=== PATIENT | male | born 1940 | race Caucasian/White ===

== ENCOUNTER → 2019-10-22 14:12 | Outpatient (CLI) | payer OTHER, SELFPAY ==
--- NOTE | ~2019-10-22 | XR_ITS ---
EXAMINATION: CT abdomen pelvis wo con, XR abdomen/kub 1V EXAM DATE: 10/22/2019 14:50 (accession [id number]), 10/22/2019 14:49 (accession [id number]) INDICATION: Kidney stone. Hematuria. TECHNIQUE: Spiral CT of the abdomen and pelvis was performed without contrast. Axial, coronal and sag ittal images were reviewed. The dose-length product (DLP) for this examination was 1097.73 mGy-cm. The exposure was tailored according to patient size (auto mA exposure control), and iterative reconst ruction (ASIR) was used as additional dose reduction technique. KUB obtained. There is no prior study for comparison. FINDINGS: There is mild to moderate bilateral hydroureteronephrosis without obstructing stones. There are large bilateral kidney stones, with left inferior calyceal stone or stones measuring about 2 cm and right inferior calyceal stones measuring about 1 cm and mid calyceal stone measuring 1.5 cm. Ther e is moderate right renal atrophy, mild to moderate left renal atrophy. The prostate is unremarkable. Some diffuse bladder wall thickening, could indicate chronic cystitis. Acute cystitis not excludabl e. Small bilateral inguinal fat-containing hernias. The liver, spleen, adrenal glands and pancreas a re unremarkable. Gallbladder is unremarkable. No biliary obstruction. There is no retroperitoneal or pelvic lymphadenopathy. The appendix is normal. There is mild scattered colonic diverticulosis. There is no adjacent inflamm atory change to suggest diverticulitis. The stomach and small bowel are unremarkable. There is expec kelsey amount of colonic stool. No free intraperitoneal gas. The heart is normal in size. There are no pericardial or pleural effusions. Clusters of left lower lobe tree-in-bud pattern pulmonary nodu les, distribution and appearance is most consistent with small amount of infection or postinfectious residua. Moderate to severe lower lumbar spondylosis. There is chronic bilateral L5 spondylolysis wi th grade 2 anterolisthesis L5 on S1. There are no osteoblastic or osteolytic lesions identified. KUB: Nonobstructive bowel gas pattern. Large bilateral nephrolithiasis identified, indicated. IMPRESSION: 1. Large bilateral nephrolithiasis. 2. Small regions of left lower lobe tree-in-bud nodular opacities likely infectious or postinfectiou s. 3. Bladder wall thickening, probably chronic cystitis. 4. Small bilateral inguinal fat-containing hernias. 5. Scattered colonic diverticulosis. Reviewed, dictated and finalized at location A. IMPRESSION: 1. Large bilateral nephrolithiasis. 2. Small regions of left lower lobe tree-in-bud nodular opacities likely infec tious or postinfectious. 3. Bladder wall thickening, probably chronic cystitis. 4. Small bilateral inguinal fat-containing hernias. 5. Scattered colonic diverticulosis.
== END ==
PROVIDERS: Visit Provider Urology
DX: N20.0 Calculus of kidney (principal); K57.30 Diverticulosis of large intestine without perforation or abscess without bleeding; K40.90 Unilateral inguinal hernia, without obstruction or gangrene, not specified as recurrent; R91.8 Other nonspecific abnormal finding of lung field
CPT/HCPCS: 74018; 74176

== ENCOUNTER 2019-10-28 13:16 | Emergency (ER) | payer OTHER, SELFPAY ==
--- NOTE | 2019-10-28 13:48 | ED.GENADULT ---
HPI - General Adult General Chief complaint: Unspecified Stated complaint: constipation Time Seen by Provider: 10/28/19 13:48 Source: patient Mode of arrival: ambulatory Limitations: no limitations History of Present Illness HPI narrative: A 79 y/o male presents to the ED with c/o constipation for 1 week. Pt states that he was able to dig a little out this morning. Pt has been taking Metamucil and prune juice with no relief. Pt has not taken Miralax or done an enema. Per , pt was in the hospital 3 weeks ago for a UTI and was told that he had ulcers on his esophagus. Pt was advised not to take any pain medication stronger than Tylenol. Pt was then transferred to a fpc for 2 weeks. Pt notes that he self catheterizes. He reports diffuse ABD pain, but denies N/V and a fever. Pt has not taken any pain medication today. Onset (ago): week(s) (1) Relieving factors: none Related Data Allergies Allergy/AdvReac Type Severity Reaction Status Date / Time No Known Allergies Allergy Unverified 12/12/18 08:51 Review of Systems Review of Systems: All systems reviewed & are unremarkable except as noted in HPI and below Constitutional: Constitutional: Denies fever(s) Gastrointestinal: Gastrointestinal: Reports abdominal pain (diffuse), Reports constipation, Denies nausea and Denies vomiting PMFSH Past Medical History Medical History (Updated 10/28/19 @ 15:43 by Tayler Reaves MD) Arthritis BPH (benign prostatic hyperplasia) Diabetes Esophageal ulcer Full dentures GERD (gastroesophageal reflux disease) HLD (hyperlipidemia) Kidney stone Seasonal allergies Shingles UTI (urinary tract infection) Wears glasses Surgical History Surgical History H/O colonoscopy H/O dilation of urethra History of arthroscopy of knee right History of laminectomy Social History Social History (Updated 10/28/19 @ 14:13 by Amanda Goodrich) Smoking status: Former smoker Smoking end date: 08/15/83 Gender identity (if verbalized by the patient): Male Comments PCP: Dr. Law Exam Narrative: Exam Narrative: GENERAL: Well-appearing, well-nourished, and in no acute distress. HEAD: Normocephalic, atraumatic EYES: PERRLA and EOMI, conjunctiva clear without discharge THROAT:Mucous membranes moist, Oropharynx normal without erythema, exudate, peritonsillar swelling or fluctuance NECK: Supple, without lymphadenopathy or mass RESPIRATORY: No respiratory distress, Airway patent, Respirations non-labored, Clear to auscultation without rales, rhonchi or wheeze HEART: Regular rate and rhythm. No murmur heard. Normal peripheral pulses. ABDOMEN: Soft, nontender, Distended, normal active bowel sounds. No masses. No rebound or guarding, No organomegaly. EXTREMITIES: No edema, normal strength with full range of motion. SKIN: Warm, dry, stasis changes to legs NEURO: Alert and oriented x3. CN 2-12 grossly intact. No focal deficits. PSYCH: Normal mood and affect. GI: Other: soft stool in rectal vault Course Reevaluation(s) Reevaluation #1: Patient was given Soap suds enema with large BM. Patient is now sitting wheelchair with clothes on stating he is ready to go home. He feels better. Date: 10/28/19 Time: 15:42 Vital Signs Vital signs: Vital Signs Temperature 97.9 F 10/28/19 14:00 Pulse Rate 69 10/28/19 14:00 Respiratory Rate 16 10/28/19 14:00 Blood Pressure 128/77 10/28/19 14:00 Pulse Oximetry 99 10/28/19 14:00 Temperature 97.9 F 10/28/19 14:00 Pulse Rate 72 10/28/19 15:53 Respiratory Rate 16 10/28/19 15:53 Blood Pressure 142/72 H 10/28/19 15:53 Pulse Oximetry 99 10/28/19 15:53 Medical Decision Making Vital Signs Vital Signs: Vital Signs Temperature 97.9 F 10/28/19 14:00 Pulse Rate 69 10/28/19 14:00 Respiratory Rate 16 10/28/19 14:00 Blood Pressure 128/77 10/28/19 14:00 Pulse Oximetry 99 10/28/19 14:00 Minerva
[2019-10-28 14:00] VITALS: BP 128/77; PULSE 69; RESP 16; TEMP 36.6; O2SAT 99
[2019-10-28 15:53] VITALS: BP 142/72; PULSE 72; RESP 16; O2SAT 99
== END 2019-10-28 15:53 | disposition home or self-care (01) ==
PROVIDERS: Emergency Provider General Practice
DX: K59.00 Constipation, unspecified (principal); M19.90 Unspecified osteoarthritis, unspecified site; N40.0 Benign prostatic hyperplasia without lower urinary tract symptoms; E11.9 Type 2 diabetes mellitus without complications; K21.9 Gastro-esophageal reflux disease without esophagitis; E78.5 Hyperlipidemia, unspecified; Z87.442 Personal history of urinary calculi; Z87.440 Personal history of urinary (tract) infections; Z87.891 Personal history of nicotine dependence
CPT/HCPCS: 99283

== ENCOUNTER 2020-01-16 11:32 | Outpatient (CLI) | payer OTHER, SELFPAY ==
--- NOTE | 2020-01-16 11:34 | ECG_ITS ---
Measurements Intervals [place] Rate: 79 P: 31 [place]: 211 QRS: -38 QRSD: 87 T: 8 QT: 354 QTc: 408 Interpretive Statements SINUS RHYTHM WITH FIRST DEGREE AV BLOCK ATRIAL PREMATURE COMPLEX LEFT AXIS DEVIATION BORDERLINE R WAVE PROGRESSION, ANTERIOR LEADS BASELINE ARTIFACT- I, II, AVR, V5-V6 ABNORMAL ECG Electronically Signed On 01-16-2020 12:40:43 CDT by Albert Gutierrez D.O.
[2020-01-16 12:04] LABS: Basophils Absolute Auto 0.1 K/mm3 (0.0-0.1); Basophils Percent Auto 0.6 % (0.2-1.2); Eosinophils Absolute Auto 0.4 K/mm3 (0-0.3); Eosinophils Percent Auto 3.7 % (0-4.4); Hematocrit 28.4 % (42.0-52.0); Immature Granulocyte Absolute 0.06 K/mm3 (0.00-0.031); Immature Granulocyte Percent A 0.6 % (0-0.5); Lymphocytes Absolute Auto 1.94 K/mm3 (0.9-3.2); Lymphocytes Percent Auto 20.4 % (18.3-44.2); Mean Corpuscular HGB Conc 31.7 g/dl (32-36); Mean Corpuscular Hemoglobin 28.7 pg (26-34); Mean Corpuscular Volume 90.4 fl (80-100); Mean Platelet Volume 9.9 fl (7.4-10.4); Monocytes Absolute Auto 0.7 K/mm3 (0.1-0.6); Monocytes Percent Auto 6.8 % (2.6-8.5); Neutrophils Absolute Auto 6.4 K/mm3 (1.3-6.7); Neutrophils Percent Auto 67.9 % (45.5-73.1); Platelet Count Result 279 k/mm3 (150-375); Red Blood Count 3.14 M/mm3 (4.6-6.20); Red Cell Distribution Width 14.9 % (11.5-14.5); White Blood Count 9.5 K/mm3 (4.5-10.0)
[2020-01-16 12:14] LABS: INR 1.1; Prothrombin Time 13.5 Seconds (11.1-14.7)
[2020-01-16 12:15] LABS: Partial Thromboplastin Time 25.2 SECONDS (22.3-36.8)
[2020-01-16 12:20] LABS: Blood Urea Nitrogen 28 mg/dL (9-20); Calcium 8.8 mg/dL (8.4-10.2); Carbon Dioxide 25 mmol/L (22-30); Chloride 104 mmol/L (98-107); Estimated Glomerular Filt Rate 28; Glucose 161 mg/dL (75-110); Potassium 4.2 mmol/L (3.4-5.0); Sodium 138 mmol/L (137-145)
== END 2020-01-16 11:33 | disposition home or self-care (01) ==
PROVIDERS: PCP Internal Medicine; Visit Provider Urology
DX: Z01.818 Encounter for other preprocedural examination (principal); E11.9 Type 2 diabetes mellitus without complications; R33.9 Retention of urine, unspecified; R94.31 Abnormal electrocardiogram [ECG] [EKG]
CPT/HCPCS: 36415; 80048; 85025; 85610; 85730; 87077; 87086; 87088; 87186; 93005

== ENCOUNTER 2020-01-19 00:48 | Outpatient (CLI) | payer OTHER, SELFPAY ==
[2020-01-19 16:39] LABS: SARS-CoV-2 RNA PCR Negative
== END 2020-01-19 00:49 | disposition home or self-care (01) ==
LOC: ANHCOVIDDT 00:48
PROVIDERS: Visit Provider Urology
DX: Z01.812 Encounter for preprocedural laboratory examination (principal); Z20.828 Contact with and (suspected) exposure to other viral communicable diseases
CPT/HCPCS: 87635; C9803; U0003

== ENCOUNTER 2020-01-22 00:35 | Day surgery (SDC) | payer OTHER, SELFPAY ==
[2020-01-14 14:09] VITALS: BMI 39.3
[2020-01-22] VITALS (11 sets, daily range): BP systolic 112–147; BP diastolic 47–81; PULSE 63–92; RESP 12–20; TEMP 36.2–36.9; O2SAT 94–100
[2020-01-22] MEDS: LACTATED RINGERS 1,000 ML 30 ML IV CONT ×2 (07:00→10:12)
--- NOTE | 2020-01-22 07:06 | WPDANESEPPF ---
Anes - Initial Pre Proc Eval Procedure: Operation Date: 01/22/20 08:15 Proposed Procedures p Trans Urethral Resection Prostate With Bladder Biopsy - Paco Blankenship MD s Circumcision - Paco Blankenship MD Date/Time: 01/22/20 07:06 Surgeon: Paco Blankenship MD Pre Op Diagnosis: phimosis, gross hermaturia, retention Patient Data Age: 79 Gender: M Height: 6 ft Weight: 135 kg Allergies Allergy/AdvReac Type Severity Reaction Status Date / Time No Known Allergies Allergy Verified 01/22/20 06:33 Home Medications Medication Instructions Recorded Confirmed Type cyanocobalamin (vitamin B-12) 1,000 mcg PO DAILY 01/14/20 01/22/20 History furosemide [Lasix] 40 mg PO DAILY 01/14/20 01/22/20 History lovastatin 40 mg PO DAILY 01/14/20 01/22/20 History metformin 500 mg PO BID 01/14/20 01/22/20 History tamsulosin 0.4 mg PO HS 01/14/20 01/22/20 History nitrofurantoin monohyd/m-cryst 100 mg PO BID 01/22/20 01/22/20 History Patient hx anesthesia problems: none Family hx anesthesia problems: none PMFSH Past Medical History Medical History Arthritis BPH (benign prostatic hyperplasia) Diabetes Esophageal ulcer Full dentures GERD (gastroesophageal reflux disease) HLD (hyperlipidemia) Kidney stone Seasonal allergies Shingles UTI (urinary tract infection) Wears glasses Surgical History Surgical History H/O colonoscopy H/O dilation of urethra History of arthroscopy of knee right History of laminectomy Social History Social History Smoking status: Former smoker Smoking end date: 08/15/83 Gender identity (if verbalized by the patient): Male Anes - Eval Final PreProcedure Day of Procedure 01/22/20 07:06 Patient weight: morbidly obese Heart: regular rate and rhythm Lungs: clear to auscultation Airway: Mallampati scale class II Neurological: alert and oriented Last oral intake: >/= 8 hours ASA classification: III Emergent: no Anesthetic plan: proceed Anesthesia type and monitoring: general LMA and standard monitoring Informed Consent: The patient's anesthetic plan and its attendant risks and benefits were discussed with the patient/family/POA. Questions were solicited and answers provided to the satisfaction of the patient/family/POA.
--- NOTE | 2020-01-22 07:23 | WPDHPUPDATE1 ---
History and Physical Update Update Date/Time: 01/22/20 07:23 History and Physical has been reviewed, including an updated exam of the patient. There are NO changes in the patient's condition. Risks, benefits, and alternatives have been discussed and questions answered. Patient agrees to proceed with procedure.
[2020-01-22] MEDS: ceFAZolin 3 GM/D5W 100 ML 100 ML IVPB (08:20)
[2020-01-22] MEDS: LIDOCAINE HCL 2% GEL UROJET 10 ML PKG MUCOUS MEM (08:53)
[2020-01-22] MEDS: NEOMYCIN/POLYMYXIN/BACITRACIN OINTMENT 15 GM TUBE 1 APPLIC TOPICAL (08:54)
--- NOTE | 2020-01-22 10:06 | P.OP_ITS ---
Procedure Note - Detailed Date of procedure: 01/22/20 Pre-op diagnosis: phimosis, gross hermaturia, retention Post-op diagnosis: same Procedure performed: Transurethral resection of prostate, circumcision, excision of penile lesion x 2 (3mm proximal and 5 mm area distally. Description of procedure: The patient is brought to the operative suite areas prepped and draped in a routine sterile fashion while in a supine position. The lines of circumcision are outlined using a sterile marking pen. 2 circumferential circumcising incisions were made and carried down to Colle's fascia. The penile foreskin is circumferentially excised. Hemostasis is obtained with electric cautery. The edges of the penile skin reapproximated using a combination of running and interrupted 4-0 chromic. A penile block is administered at the base of the penis with 0.25% bupivacaine. The patient was taken to the recovery room in good condition. EBL was approximately 10cc. He also had 2 lesions on the shaft of the penis. The proximal lesion measured a pproximately 3 mm and was somewhat raised. This was excised and a suture was placed in the skin. The 2nd lesion was more distally and this was more of an induration of hardness. This area measured approximately 5 mm. We also excised this then used interrupted sutures with chromic. He was then placed in the dorsal lithotomy position and prepped and draped in usual sterile fashion. Twenty[place]four [place] resectoscope sheath was inserted into the bladder. The bladder is inspected he has a lot of typical catheter irritation but no discrete papillary tumors noted at this time. He does have some mild residual prostatic tissue. We went ahead and resected this tissue from the bladder neck to the verumontanum. Electrocautery was used for hemostasis. Chips were sent for analysis. 2% viscous lidocaine was then inserted. [address] [place] [address] was placed with 20 cc in the balloon. This was connected to continuous bladder irrigation and he was taken recovery in stable condition. He will be watched overnight with CBI. Anesthesia: GLMA Surgeon: Paco Blankenship MD Estimated blood loss (mL): 25 Drains: Yes Packing: No Pathology: yes Complications: No immediate complications Condition: stable Disposition: PACU
[2020-01-22 10:35] LABS: Glucose Point of Care 177 (65-105)
--- NOTE | 2020-01-22 11:00 | PC.NURSE ---
This patient, Jovanny Ryder, was admitted to 3 [facility] Surg Room 312-01. Patient/family oriented to hospital policies and general routines including ID bracelet, bed and alarms, visiting hours, pain management, procedures, bathroom and other care routines, personal items, smoking policy, room service/diet, and visiting hours. Valuables list has been completed. Information on how to activate the Rapid Response Team has been discussed. Patient/Family are encouraged to report perceived risks to care and to ask questions if they do not understand what they are told or what they should do.
[2020-01-22] MEDS: metFORMIN HCL 500 MG TABLET PO (17:16)
[2020-01-22] MEDS: NITROFURANTOIN MONOHYD MACROCR 100 MG CAP PO (17:16)
[2020-01-22] MEDS: DOCUSATE SODIUM 100 MG CAPSULE PO (17:16)
[2020-01-22] MEDS: TAMSULOSIN HCL 0.4 MG CAPSULE PO (20:06)
[2020-01-22] MEDS: MORPHINE SULFATE 2 MG/ML INJ IV PUSH (20:10)
[2020-01-23 02:00] VITALS: BP 144/59; PULSE 72; RESP 20; TEMP 37.1; O2SAT 98
[2020-01-23] MEDS: MORPHINE SULFATE 2 MG/ML INJ IV PUSH (03:40)
[2020-01-23 06:00] VITALS: BP 114/58; PULSE 72; RESP 20; TEMP 36.6; O2SAT 99
[2020-01-23 06:42] LABS: Hematocrit 27.8 % (42.0-52.0); Hemoglobin 8.5 g/dL (14.0-18.0)
[2020-01-23 06:48] LABS: Blood Urea Nitrogen 20 mg/dL (9-20); Calcium 8.8 mg/dL (8.4-10.2); Carbon Dioxide 29 mmol/L (22-30); Chloride 105 mmol/L (98-107); Estimated CRCL calculation 37 ml/min; Estimated Glomerular Filt Rate 29; Glucose 166 mg/dL (75-110); Sodium 138 mmol/L (137-145)
[2020-01-23 08:00] VITALS: BP 113/58; PULSE 73
[2020-01-23] MEDS: DOCUSATE SODIUM 100 MG CAPSULE PO (08:00)
[2020-01-23] MEDS: FUROSEMIDE 40 MG TABLET PO (08:01)
[2020-01-23] MEDS: metFORMIN HCL 500 MG TABLET PO (08:01)
[2020-01-23] MEDS: NITROFURANTOIN MONOHYD MACROCR 100 MG CAP PO (08:01)
[2020-01-23] MEDS: LOVASTATIN 20 MG TABLET 40 MG PO (08:01)
--- NOTE | 2020-01-23 08:30 | WPDUROPN2 ---
Progress Note: A&P Assessment and Plan (1) BPH (benign prostatic hyperplasia): Code(s): N40.0 - Benign prostatic hyperplasia without lower urinary tract symptoms Status: Acute Assessment and Plan: Urine clear off CBI. Ok to discharge home with home health with benito catheter. Will remove benito on Tuesday in the office. (2) Penile lesion: Code(s): N48.9 - Disorder of penis, unspecified Status: Acute Assessment and Plan: Awaiting pathology results. Subjective Subjective Date/Time Seen: 01/23/20 08:30 POD #1 TURP, Circumcision, Excision of Penile Lesion Review of Systems Respiratory: Respiratory: Reports no additional respiratory complaints Gastrointestinal: Gastrointestinal: Denies abdominal pain, Denies nausea and Denies vomiting Genitourinary: Genitourinary: Denies genital pain Exam Resp: Effort & Inspection: normal respiratory effort Cardio: Rate: regular rate GI: GI Palp: No abdominal tenderness Urinary Catheter: Urinary Catheter: patent and draining and urine clear Objective Data Vital Signs Vital Signs: Vital Signs - 24 hr 01/22/20 10:12 01/22/20 10:25 01/22/20 10:40 Temperature 97.3 F L Pulse Rate 92 76 72 Respiratory Rate 19 16 14 Blood Pressure 139/67 121/65 112/55 L Pulse Oximetry 99 100 94 01/22/20 10:50 01/22/20 11:00 01/22/20 11:15 Temperature Pulse Rate 69 69 65 Respiratory Rate 12 18 18 Blood Pressure 117/47 L 114/69 127/81 Pulse Oximetry 100 99 97 01/22/20 11:45 01/22/20 12:45 01/22/20 16:15 Temperature 98.1 F 98.2 F Pulse Rate 63 70 68 Respiratory Rate 18 16 18 Blood Pressure 125/71 141/51 H 135/78 Pulse Oximetry 98 95 97 01/22/20 22:00 01/23/20 02:00 01/23/20 06:00 Temperature 98.5 F 98.7 F 97.9 F Pulse Rate 79 72 72 Respiratory Rate 20 20 20 Blood Pressure 118/52 L 144/59 H 114/58 L Pulse Oximetry 95 98 99 01/23/20 08:00 Temperature Pulse Rate 73 Respiratory Rate Blood Pressure 113/58 L Pulse Oximetry Intake/Output Intake/Output: Intake & Output 06/0701/21/20 01/22/20 01/23/20 23:59 23:59 23:59 23:59 Intake Total 890 Output Total 3250 900 Balance -2360 -900 Meds/Results Medications: Active Medications Generic Name Dose Route Start Last Admin Trade Name Freq PRN Reason Stop Dose Admin Hydrocodone Bitart/Acetaminophen 1 tab 01/22/20 10:53 01/23/20 02:33 [place] 5-325 Mg PO 1 tab Q4H PRN Administration Pain Rated 1-6 Docusate Sodium 100 mg 01/22/20 17:00 01/23/20 08:00 Colace Capsule PO 100 mg BID ROHAN Administration Furosemide 40 mg 01/23/20 09:00 01/23/20 08:01 Lasix Tablet PO 40 mg DAILY ROHAN Administration Hyoscyamine 0.125 mg 01/22/20 10:53 Levsin Tablet SUBLINGUAL Q6H PRN Bladder Spasm Lovastatin 40 mg 01/23/20 09:00 01/23/20 08:01 Lovastatin PO 40 mg DAILY ROHAN Administration Metformin HCl 500 mg 01/22/20 17:00 01/23/20 08:01 Glucophage PO 500 mg BIDWM ROHAN Administration Morphine Sulfate 2 mg 01/22/20 10:53 01/23/20 03:40 Morphine Sulfate Inj IV PUSH 2 mg Q2H PRN Administration Pain Rated 7-10 Naloxone HCl 0.1 mg 01/22/20 10:53 Narcan IV PUSH Q2M PRN Opiate Reversal Nitrofurantoin Macrocrystals 100 mg 01/22/20 17:00 01/23/20 08:01 Macrobid PO 100 mg BID ROHAN Administration Ondansetron HCl 4 mg 01/22/20 10:53 Zofran Inj IV PUSH Q12H PRN Nausea And Vomiting Tamsulosin HCl 0.4 mg 01/22/20 21:00 01/22/20 20:06 Flomax PO 0.4 mg HS ROHAN Administration Labs Labs: Laboratory Results - last 24 hr 01/22/20 01/23/20 01/23/20 10:33 06:08 06:08 Hgb 8.5 L Hct 27.8 L Sodium 138 Potassium 4.0 Chloride 105 Carbon Dioxide 29 BUN 20 Creatinine 2.20 H Estim Creat Clear Calc 37 Estimated GFR 29 L Glucose 166 H POC Capillary Glucose 177 H Calcium 8.8
--- NOTE | 2020-01-23 09:18 | WPDANESPN ---
Anes - Prog Note Post-Op Date/Time: 01/23/20 09:18 Cardiovascular status: normal Respiratory status: normal Airway patency: baseline Mental status: baseline Post-Op hydration status: normal Vital Signs: Last Vital Signs Temp 36.6 C 01/23/20 06:00 Pulse 73 01/23/20 08:00 Resp 20 01/23/20 06:00 BP 113/58 L 01/23/20 08:00 Pulse Ox 99 01/23/20 06:00 I/O: Intake & Output 01/22/20 01/23/20 01/23/20 23:59 07:59 15:59 Intake Total 570 Output Total 950 900 Balance -380 -900 Laboratory Tests 01/23/20 06:08 01/23/20 06:08 01/22/20 01/23/20 01/23/20 10:33 06:08 06:08 Hgb 8.5 L Hct 27.8 L Sodium 138 Potassium 4.0 Chloride 105 Carbon Dioxide 29 BUN 20 Creatinine 2.20 H Estim Creat Clear Calc 37 Estimated GFR 29 L Glucose 166 H POC Capillary Glucose 177 H Calcium 8.8 Patient Feedback: Patient satisfied with anesthetic care.
[2020-01-23 10:00] VITALS: BP 120/61; PULSE 71; RESP 18; TEMP 36.7; O2SAT 100
--- NOTE | 2020-01-23 13:36 | PC.NURSE ---
This nurse got patient up out of bed this morning to sit in a chair. Patient was a 2 max assist. I notified Adri Wagner that I did not think the patient was safe to go home. She put orders in for physical therapy. Physical therapy did their evaluation and said that he was not safe to go home and they recommend a SNF. Care coordination went into patients room and discussed this with the patient and he refused. He agreed to home health. I spoke with the patient about the importance of his safety and he still refused to go to a SNF. I notified Adri WAGNER about the situation and she stated to go ahead and discharge him. When I took the patient down to his 's car, I again explained that the hospital and its staff did not think that he was safe to go home. insisted on taking him home. Patient was placed in the car by 3 staff.
--- NOTE | 2020-01-23 15:44 | DS_ITS ---
DATE OF DISCHARGE: 01/23/2020 PREOPERATIVE DIAGNOSES: Phimosis, gross hematuria and retention POSTOPERATIVE DIAGNOSES: Phimosis, gross hematuria and retention. The patient underwent transurethral resection of the prostate, circumcision, excision of penile lesion x2. 3 mm proximal and 5 mm area distally on January 22, [address] Paco Blankenship. The patient tolerated procedure well, was then transferred to recovery in stable condition and to the floor for further observation overnight. The patient has tolerated catheter well. CBI was turned off this morning. The urine remains clear off CBI. The patient has difficulty transferring from bed to chair and has had multiple falls at home. Therefore, physical therapy was consulted and evaluated patient for SNF transfer. The patient did fail physical therapy evaluation and was recommended to go to SNF upon discharge. However, patient is refusing, but did agree to go home with home health care. The patient will be discharged home today with home health care. DIET: As tolerated. ACTIVITY: As tolerated. The patient will follow up Tuesday for catheter removal in the office. He will resume all home medications previously given including hydrocodone-acetaminophen for pain and docusate sodium for constipation. D I MT: Yasmine
== END 2020-01-23 13:30 | disposition home or self-care (01) ==
LOC: ANHSURGERY 06:16 → ANH3MEDSUR 10:54
PROVIDERS: PCP Internal Medicine; Visit Provider Urology
PROC: 0VT08ZZ Resection of Prostate, Via Natural or Artificial Opening Endoscopic (ICD-10-PCS; CPT 52601; principal; 2020-01-22 08:15)
PROC: (CPT 54161; 2020-01-22 08:15)
DX: N40.1 Benign prostatic hyperplasia with lower urinary tract symptoms (principal); R33.8 Other retention of urine; N39.498 Other specified urinary incontinence; R35.0 Frequency of micturition; R35.1 Nocturia; R39.15 Urgency of urination; N47.1 Phimosis; D29.0 Benign neoplasm of penis; N48.5 Ulcer of penis; N41.1 Chronic prostatitis; Z87.440 Personal history of urinary (tract) infections; E11.9 Type 2 diabetes mellitus without complications; Z79.84 Long term (current) use of oral hypoglycemic drugs; E78.5 Hyperlipidemia, unspecified; K21.9 Gastro-esophageal reflux disease without esophagitis; Z87.891 Personal history of nicotine dependence
CPT/HCPCS: 52601; 54161; 11420 ×2; 36415; 80048; 85014; 85018; 88304; 88305; 97161; A9270; J0690; J2270; J2405; J2704; J3010; J7120

== ENCOUNTER 2020-08-12 09:22 | Outpatient (CLI) | payer OTHER, SELFPAY ==
[2020-08-12 10:11] LABS: Anion Gap 10 mmol/L (8-16); Blood Urea Nitrogen 57 mg/dL (9-20); Calcium 9.3 mg/dL (8.4-10.2); Carbon Dioxide 23 mmol/L (22-30); Chloride 106 mmol/L (98-107); Estimated Glomerular Filt Rate 12; Glucose 143 mg/dL (75-110); Potassium 4.7 mmol/L (3.4-5.0); Sodium 139 mmol/L (137-145)
== END 2020-08-12 09:23 | disposition home or self-care (01) ==
LOC: ANHSURGERY 09:24
PROVIDERS: Anesthesiology; PCP Internal Medicine; Visit Provider Urology
DX: Z01.818 Encounter for other preprocedural examination (principal); R60.9 Edema, unspecified; R31.0 Gross hematuria
CPT/HCPCS: 36415; 80048; 87086; 87088

== ENCOUNTER 2020-08-16 02:04 | Outpatient (CLI) | payer OTHER, SELFPAY ==
[2020-08-16 20:09] LABS: SARS-CoV-2 RNA PCR Negative
== END 2020-08-16 02:05 | disposition home or self-care (01) ==
LOC: ANHCOVIDDT 02:04
PROVIDERS: PCP Internal Medicine; Visit Provider Urology
DX: Z01.812 Encounter for preprocedural laboratory examination (principal); Z20.822 Contact with and (suspected) exposure to COVID-19
CPT/HCPCS: C9803; U0003

== ENCOUNTER 2020-08-18 15:41 | Outpatient (CLI) | payer OTHER, SELFPAY ==
--- NOTE | ~2020-08-18 | XR_ITS ---
EXAMINATION: XR abdomen/kub 1V EXAM DATE: 08/18/2020 16:13 INDICATION: Kidney stones. TECHNIQUE: Frontal projection of the upper abdomen, frontal projection lower abdomen/pelvis for inter pretation. Comparison is made to prior examination from 10/22/2019. FINDINGS: Large bilateral kidney stones identified, indicated. These were seen on prior x-ray. Nonob structive bowel gas pattern. Advanced lower lumbar spondylosis. There is no organomegaly. IMPRESSION: Large bilateral nephrolithiasis. Reviewed, dictated and finalized at location A. GN [employer]SEM[employer]ER
--- NOTE | ~2020-08-18 | CT_ITS ---
EXAMINATION: CT abdomen pelvis wo con EXAM DATE: 08/18/2020 16:05 INDICATION: Kidney stone. TECHNIQUE: Spiral CT of the abdomen and pelvis was performed without contrast. Axial, coronal and sag ittal images were reviewed. The dose-length product (DLP) for this examination was 1190.08 mGy-cm. The exposure was tailored according to patient size (auto mA exposure control), and iterative reconst ruction (ASIR) was used as additional dose reduction technique. Comparison is made to prior examinati on from 10/22/2019. FINDINGS: There is moderate to severe right, moderate left-sided renal atrophy. Large kidney stones b ilaterally. There is moderate right, mild to moderate left-sided hydroureteronephrosis, to the UVJs b ilaterally, without obstructing stones identified. There is diffusely thickened bladder wall with adj acent fat stranding, indistinct margins, consistent with acute and/or chronic cystitis. Correlate wit h urinalysis. The prostate is unremarkable. The liver, spleen, adrenal glands and pancreas are unremarkable. Gallbladder is unremarkable. No bi liary obstruction. There is no retroperitoneal or pelvic lymphadenopathy. There is mild to moderat e scattered arteriosclerotic disease. Small bilateral inguinal fat-containing hernias. The appendix is normal. There is small sliding gastroesophageal hiatal hernia. There is expected am ount of colonic stool. No free intraperitoneal gas. The heart is normal in size. There are no pe ricardial or pleural effusions. Stable appearance to the left lower lobe posterior reticular nodular opacities, appearance most consi stent with chronic infectious process or sequela from prior infection. There are no osteoblastic or osteolytic lesions identified. There is chronic L5 bilateral spondylolysis with grade 1 anterolisthe sis L5 on S1. Advanced lower lumbar disc disease. IMPRESSION: 1. Large bilateral nephrolithiasis. Moderate right, mild to moderate left hydroureteronephrosis to t he UVJs without obstructing stones. 2. Diffuse bladder wall thickening, adjacent fat stranding. Acute and/or chronic cystitis. 3. Chronic left lower lobe tree-in-bud infectious or postinfectious process. 4. Small inguinal hernias. Reviewed, dictated and finalized at location A. TEACHER IMPRESSION: 1. Large bilateral nephrolithiasis. Moderate right, mild to moderate left hydr oureteronephrosis to the UVJs without obstructing stones. 2. Diffuse bladder wall thickening, adjacent fat stranding. Acute and/or chron ic cystitis. 3. Chronic left lower lobe tree-in-bud infectious or postinfectious process. 4. Small inguinal hernias.
== END 2020-08-18 15:42 | disposition home or self-care (01) ==
LOC: ANHIMG 15:42
PROVIDERS: PCP Internal Medicine; Visit Provider Urology
DX: N20.0 Calculus of kidney (principal); N13.30 Unspecified hydronephrosis; R93.41 Abnormal radiologic findings on diagnostic imaging of renal pelvis, ureter, or bladder; R91.8 Other nonspecific abnormal finding of lung field; K40.20 Bilateral inguinal hernia, without obstruction or gangrene, not specified as recurrent
CPT/HCPCS: 74018; 74176

== ENCOUNTER 2020-08-19 10:55 | Inpatient (IN) | payer OTHER, SELFPAY ==
[2020-08-06 15:15] VITALS: BMI 37.6
--- NOTE | 2020-08-18 10:29 | WPDANESEPPF ---
Anes - Initial Pre Proc Eval Procedure: Operation Date: 08/19/20 10:00 Proposed Procedures p Cystoscopy, Possible Clot Evacuation - Paco Blankenship MD Date/Time: 08/18/20 10:29 Surgeon: Paco Blankenship MD Pre Op Diagnosis: Gross Hematuria Patient Data Age: 79 Gender: M Height: 1.85 m Weight: 129.35 kg Allergies Allergy/AdvReac Type Severity Reaction Status Date / Time No Known Allergies Allergy Verified 08/19/20 08:02 Home Medications Medication Instructions Recorded Confirmed Type cyanocobalamin (vitamin B-12) 1,000 mcg PO DAILY 01/14/20 08/19/20 History furosemide [Lasix] 40 mg PO PRN PRN 01/14/20 08/19/20 History lovastatin 40 mg PO DAILY 01/14/20 08/19/20 History tamsulosin 0.4 mg PO HS 01/14/20 08/19/20 History docusate sodium 100 mg PO BID #10 cap 01/23/20 08/19/20 Rx tramadol 50 mg PO BID 08/06/20 08/19/20 History Patient hx anesthesia problems: none Family hx anesthesia problems: none PMFSH Past Medical History Medical History (Updated 01/23/20 @ 08:32 by Adri Chirinos APRN) Arthritis BPH (benign prostatic hyperplasia) Diabetes Esophageal ulcer Full dentures GERD (gastroesophageal reflux disease) HLD (hyperlipidemia) Kidney stone Seasonal allergies Shingles UTI (urinary tract infection) Wears glasses Surgical History Surgical History H/O colonoscopy H/O dilation of urethra History of arthroscopy of knee right History of laminectomy Social History Social History Smoking packs per day: 4 Smoking cigarettes per day: 80.0 Years smoked: 32 Smoking pack-years: 128.00 Smoking status: Former smoker Tobacco type: cigarettes Smoking end date: 08/15/83 Alcohol intake: current Drinks per week: 2 Substance use: never Living arrangements: with family Gender identity (if verbalized by the patient): Male Spiritual care concerns: No Anes - Eval Final PreProcedure Day of Procedure 08/18/20 10:29 Patient weight: obese Heart: regular rate and rhythm Lungs: clear to auscultation and normal air movement Airway: Mallampati scale class III Neurological: alert and oriented Last oral intake: >/= 8 hours ASA classification: III Emergent: no Anesthetic plan: proceed Anesthesia type and monitoring: general LMA and standard monitoring Informed Consent: The patient's anesthetic plan and its attendant risks and benefits were discussed with the patient/family/POA. Questions were solicited and answers provided to the satisfaction of the patient/family/POA.
[2020-08-19] VITALS (28 sets, daily range): BP systolic 83–119; BP diastolic 49–86; PULSE 52–140; RESP 14–22; TEMP 35.9–36.6; O2SAT 91–100
--- NOTE | ~2020-08-19 | US_ITS ---
EXAMINATION: US retroperitoneal comp DATE: 08/20/2020 09:58 INDICATION: Renal failure. TECHNIQUE: Multiple ultrasound grayscale images of the kidneys were obtained. COMPARISON: CT abdomen and pelvis 08/18/2020 FINDINGS: The right kidney measures 13.0 x 5.2 x 6.3 cm. The left kidney measures 12.6 x 6.4 x 7.3 cm. The kidn eys demonstrate normal parenchymal echogenicity. There is a 1.4 cm cyst in right kidney. There are st ones in the kidneys better seen on the recent CT. There is no hydronephrosis. The bladder is decompre ssed by a Wilson catheter. IMPRESSION: 1. Bilateral kidney stones better seen by CT. No hydronephrosis. Reviewed, dictated and finalized at location A. S BRANCH MANAGER
--- NOTE | ~2020-08-19 | XR_ITS ---
EXAMINATION: XR retrograde pyelo w/stent BI DATE: 08/19/2020 10:43 INDICATION: Bilateral ureteral stent placement TECHNIQUE: Fluoroscopic images from a bilateral stent placement are submitted for review. 71 seconds of fluoroscopy time. 18 fluoroscopic images. FINDINGS: There are bilateral double-J internal ureteral stent projecting in expected position, with proximal C ope loop at the level of the renal pelvis and distal loop in the pelvis within the bladder lumen. IMPRESSION: 1. Bilateral internal ureteral stent placement. Please refer to real-time procedural findings for d etails. Reviewed, dictated and finalized at location A. SE BLENDER IMPRESSION: 1. Bilateral internal ureteral stent placement. Please refer to real-time pro cedural findings for details.
--- NOTE | ~2020-08-19 | CT_ITS ---
EXAMINATION: CT brain [facility] EXAM DATE: 08/20/2020 16:22 INDICATION: Altered mental status. TECHNIQUE: Spiral CT of the head was performed without contrast. Axial, coronal and sagittal images were reviewed. The dose-length product (DLP) for this examination was 756.67 mGy-cm. The exposure w as tailored according to patient size, and iterative reconstruction (ASIR) was used as additional dos e reduction technique. There is no prior study for comparison. FINDINGS: There is no acute intraparenchymal hemorrhage. No evidence of intraparenchymal brain mass lesion. No evidence of acute infarction. Please note that initial head CT has limited sensitivity f or small or acute infarctions. There is mild periventricular and subcortical hypodensity, nonspecific but probably related to small vessel ischemic disease. There is moderate prominence of the sulci a nd ventricles related to cerebral atrophy. There is intracranial carotid arteriosclerosis. There a re no extra-axial collections. There is no mass effect or midline shift. Patient has had bilateral ocular lens surgery. Soft tissue is unremarkable. Mild to moderate mucoperiosteal thickening. IMPRESSION: 1. No acute intracranial findings. 2. Chronic age related findings. Reviewed, dictated and finalized at location A. ONAL LINES SALES EXECUTIVE
--- NOTE | 2020-08-19 08:27 | WPDHPUPDATE1 ---
History and Physical Update Update Date/Time: 08/19/20 08:27 History and Physical has been reviewed, including an updated exam of the patient. There are NO changes in the patient's condition. Risks, benefits, and alternatives have been discussed and questions answered. Patient agrees to proceed with procedure. Patients creatinine has increased with renal ct showing bilateral hydronephrosis without ureteral stones. Will proceed with bilateral retrogrades with possible bilateral ureteral stents in addition to cystoscopy with possible clot evacuation.
[2020-08-19 08:32] LABS: Hematocrit 22.4 % (42.0-52.0)
[2020-08-19] MEDS: LACTATED RINGERS 1,000 ML 30 ML IV CONT (08:34)
[2020-08-19 08:35] LABS: Glucose Point of Care 168 (65-105)
[2020-08-19 08:40] LABS: Hemoglobin 6.8 g/dL (14.0-18.0)
[2020-08-19 08:42] LABS: INR 1.2
[2020-08-19 08:43] LABS: Partial Thromboplastin Time 30.4 SECONDS (22.3-36.8)
[2020-08-19] MEDS: ceFAZolin 3 GM/D5W 100 ML 100 ML IVPB (10:00)
[2020-08-19] MEDS: LIDOCAINE HCL 2% GEL UROJET 10 ML PKG MUCOUS MEM (10:16)
--- NOTE | 2020-08-19 10:41 | P.OP_ITS ---
Procedure Note - Detailed Date of procedure: 08/19/20 Pre-op diagnosis: Gross Hematuria Post-op diagnosis: other (Bilateral chronically dilated hydroureter is was some tortuosity in the mid to distal ureter. No evidence of clots) Procedure performed: Urethral dilation, cystoscopy, bilateral retrograde pyelogram, right ureteroscopy, bilateral ureteral stent placement, complex Wilson catheter placement 18 [place] tip Description of procedure: Patient is taken to the operative suite and correctly identified. Once anesthesia was obtained he was placed in the dorsal lithotomy position and prepped and draped usual sterile fashion. Twenty-two Guyanese scope was attempted to be passed in the urethra. He was extremely tight. We dilated with male sounds initially up to 20 Guyanese. Nineteen Guyanese scope was then passed. He has somewhat of a tight bladder neck. There is evidence of prior TURP the bladder itself was inspected. There are no tumors noted at this time. No clots were visualized. He has very open patulous ureteral orifices bilaterally. A Virgil was inserted into the right ureter contrast was injected. Again it was dilated. Contrast made its way up into the proximal ureter however there was some what appeared to be narrowing in the ureter right over the iliac crest area. We thus passed a guidewire. Mini flexible ureteroscope was inserted. There were no tumors noted. It is just simply some tortuosity. We then placed a 6 Guyanese contour stent with the proximal end coiled in the renal pelvis distal in the bladder. Pyelogram was then performed on the left side. Again this also has chronically dilated system. Given his renal insufficiency we did go ahead and place a 6 [place]yanese contour on the left in addition due to the hydronephrosis. This also coiled in the renal pelvis with the distal in the bladder. The guidewire was then left in the bladder. Eighteen [place] tip catheter was passed over the guidewire into the bladder and inflated with 10 cc sterile water. He is taken recovery stable condition. Patient is anemic with an hemoglobin of 6.8 will be transfused 1 unit in recovery. Will have Medicine evaluate the patient is see if they will accept him for further management of his anemia as well as renal insufficiency [facility] Surgeon: Paco Blankenship MD Drains: Yes Packing: No Pathology: none sent Complications: No immediate complications Condition: stable Disposition: PACU
[2020-08-19 10:59] LABS: Glucose Point of Care 150 (65-105)
[2020-08-19] MEDS: SODIUM CHLORIDE 0.9% IV 250 ML 25 ML IV CONT (11:20)
--- NOTE | 2020-08-19 12:20 | SUR.PHASEI ---
6050 SBAR FAXED FLOOR NOTIFIED
--- NOTE | 2020-08-19 13:05 | ADMGEN ---
This patient, Jovanny Ryder, was admitted to -. Patient/family oriented to hospital policies and general routines including ID bracelet, bed and alarms, visiting hours, pain management, procedures, bathroom and other care routines, personal items, smoking policy, room service/diet, and visiting hours. Information on how to activate the Rapid Response Team has been discussed. Patient/Family are encouraged to report perceived risks to care and to ask questions if they do not understand what they are told or what they should do.
--- NOTE | 2020-08-19 15:01 | ECG_ITS ---
Measurements Intervals [place] Rate: 109 P: [place]: 0 QRS: -43 QRSD: 109 T: 77 QT: 336 QTc: 453 Interpretive Statements ATRIAL FIBRILLATION WITH RAPID VENTRICULAR RESPONSE LEFT AXIS DEVIATION NONSPECIFIC T-WAVE ABNORMALITY- LATERAL LEADS BASELINE ARTIFACT- I, II, III, AVR, AVL, V1, V3 ABNORMAL ECG Electronically Signed On 08-19-2020 16:09:03 MEDICAL STAFF COORDINATOR by Albert Gutierrez D.O.
--- NOTE | 2020-08-19 15:45 | PM.IMHP ---
H&P: HPI History of Present Illness Date/Time: 08/19/20 15:45 Chief Complaint: Bilateral ureter stents Narrative: Jovanny Ryder is a 79 year old male who has a history of kidney stone. The patient he was found to have bilateral chronically dilated hydroureter and it was somewhat tortuous in the bed and distal ureter. There was no evidence of clots. The patient had urethral dilation, cystoscopy, bilateral retrograde pyelogram, right ureteroscopy, bilateral ureteral stent placement, complex Wilson catheter placement 18 [place] tip. Please see the procedure note from Dr. Blankenship today. The patient was found to be anemic with a hemoglobin of 6.8 he had 1 unit packed red blood cells in the recovery room and then had a 2nd 1 when he receives CV to the floor. The patient was noted to have a rapid heart rate with an arrhythmia. It looks like he has some P-waves. Previous EKG shows frequent APCs. The patient has a Wilson catheter and is draining red color urine. Patient appears to be very pale. Surgery Zofran IV fluids and Ancef. Patient is being admitted to inpatient on the date of service of 08/19/2020 Review of Systems Review of Systems: All systems reviewed & are unremarkable except as noted in HPI and below Constitutional: Constitutional: Reports as per HPI and Reports no additional constitutional complaints Eyes: Eyes: Reports as per HPI and Reports no additional eye complaints ENT: Reports system reviewed and no additional complaints, except as documented and Reports Normal hearing present Cardiovascular: Cardiovascular: Reports no additional cardiovascular complaints Respiratory: Respiratory: Reports no additional respiratory complaints and Reports no additional respiratory complaints Gastrointestinal: Gastrointestinal: Reports as per HPI and Reports no additional gastrointestinal complaints Musculoskeletal: Musculoskeletal: Reports no additional musculoskeletal complaints Integumentary/Breasts: Skin/Breast: Reports system reviewed and no additional complaints, except as docu and Reports as per HPI Neurologic: Reports system reviewed and no additional complaints, except as documented, Reports as per HPI and Reports Normal hearing present Psychiatric: Psychiatric: Reports no additional psychiatric complaints and Reports as per HPI Endocrine: Endocrine: Reports no additional endocrine complaints Hematologic/Lymphatic: Hematologic/Lymphatic: Reports no additional hematologic/lymphatic complaints Allergic/Immunologic: Allergic/Immunologic: Reports no additional allergic/immunologic complaints [facility] Past Medical History Medical History (Updated 08/19/20 @ 16:08 by Esthela Jarrett NP) Arthritis BPH (benign prostatic hyperplasia) CRF (chronic renal failure) Diabetes Esophageal ulcer Full dentures GERD (gastroesophageal reflux disease) HLD (hyperlipidemia) Kidney stone Seasonal allergies Shingles UTI (urinary tract infection) Wears glasses Surgical History Surgical History (Updated 08/19/20 @ 16:00 by Esthela Jarrett NP) H/O colonoscopy H/O dilation of urethra History of arthroscopy of knee right History of laminectomy Status post cystoscopy Family History Family History (Updated 08/19/20 @ 15:53 by Esthela Jarrett NP) Unknown Unknown family medical history Social History Social History (Updated 08/19/20 @ 15:53 by Esthela Jarrett NP) Social History: The patient stated that his is the durable power admitted attorneys. The patient stopped smoking in 1983 he said that he smoked up to 4 packs of cigarettes a day. 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 His no biological children but has 3 step children. No alcohol marijuana or illicit drug use. Smoking packs per day: 4 Smoking cigarettes per day: 80.0 Years smoked: 32 Smoking pack-years: 128.00 Smoking status: Former smoker Tobacco type: cigarettes Smoking end date: 08/15/83 Alcohol intake: current
[2020-08-19] MEDS: DOCUSATE SODIUM 100 MG CAPSULE PO (16:06)
[2020-08-19] MEDS: traMADol HCL (*CRX) 50 MG TABLET PO (16:06)
[2020-08-19] MEDS: CYANOCOBALAMIN 1,000 MCG TABLET 1000 MCG PO (16:55)
[2020-08-19] MEDS: FUROSEMIDE 40 MG TABLET PO (16:56)
[2020-08-19 19:01] LABS: Glucose Point of Care 160 (65-105)
[2020-08-19 19:27] LABS: Hematocrit 23.3 % (42.0-52.0); Hemoglobin 7.2 g/dL (14.0-18.0)
[2020-08-19] MEDS: DIGOXIN INJ 250 MCG/ML 2 ML AMP (*BKC) IV PUSH (20:33)
[2020-08-19] MEDS: SODIUM CHLORIDE 0.9% IV 250 ML 30 ML IV CONT (20:33)
[2020-08-19] MEDS: TAMSULOSIN HCL 0.4 MG CAPSULE PO (20:33)
[2020-08-19 20:54] LABS: Glucose Point of Care 145 (65-105)
[2020-08-20] VITALS (17 sets, daily range): BP systolic 122–139; BP diastolic 53–64; PULSE 85–125; RESP 18–26; TEMP 36.2–37.3; O2SAT 96–99; BMI 38.4
--- NOTE | 2020-08-20 | ECHO_ITS ---
Patient Info Name: Jovanny Ryder Age: 79 years : 1940 Gender: Male Ht: 73 in Wt: 289 lbs BSA: 2.65 m2 HR: 90 bpm BP: 129 / 64 mmHg Technical Quality: Fair Exam Date: 08/20/2020 10:12 AM Exam Location: [facility] Pulmonary Exam Room: [facility] [place] Patient Status: Inpatient Admit Date: 08/19/2020 Staff Ordering Physician: Francisco Rogers MD Leaflet Distributor: Silvia Bermeo RDCS Attending Provider: Eliane Hayes PA-C Referring Physician: Ken KAY; Exam Type: CA echo dop color flow w con Study Info Indications - RAPID AFIB Complete two-dimensional, color flow and Doppler transthoracic echocardiogram is performed with contrast to opacify the left ventricle and to improve the deliniation of the left ventricle endocardial borders. Contrast/Agitated Saline Contrast/Ag. Saline: Definity Amount: 1.00 ml Summary 1. Left ventricular chamber dimension is normal. 2. Definity contrast administered improved wall motion interpretation. 3. Left ventricular systolic function is normal, estimated at 60-65%. 4. There is mildly increased left ventricular wall thickness. 5. The left ventricular diastolic function is grade I diastolic dysfunction. 6. E/e' 9 is minimally elevated. 7. Left atrial chamber dimension is mildly enlarged. 8. Right atrial chamber dimension is mildly enlarged. 9. There is trace tricuspid valve regurgitation. 10. No pulmonary hypertension, estimated pulmonary arterial systolic pressure is 31 mmHg. Left Ventricle E/e' 9 is minimally elevated. Definity contrast administered improved wall motion interpretation. Left ventricular chamber dimension is normal. Left ventricular systolic function is normal, estimated at 60-65%. There is mildly increased left ventricular wall thickness. The left ventricular diastolic function is grade I diastolic dysfunction. Right Ventricle Right ventricular chamber dimension is normal. Right ventricular systolic function is normal. Left Atria Left atrial chamber dimension is mildly enlarged. Right Atria Right atrial chamber dimension is mildly enlarged. Aortic Valve The aortic valve is trileaflet. There is no aortic valve stenosis. There is no aortic valve regurgitation. Pulmonic Valve There is no pulmonic regurgitation. Mitral Valve There is no mitral valve stenosis. There is no mitral valve regurgitation. Tricuspid Valve There is trace tricuspid valve regurgitation. No pulmonary hypertension, estimated pulmonary arterial systolic pressure is 31 mmHg. Pericardium/Pleural There is no pericardial effusion. Inferior Vena Cava Normal inferior vena cava with >50% collapse upon inspiration consistent with normal right atrial pressure, 5 mmHg. Aorta The aortic root size at the sinus of Valsalva is normal. Left Ventricular Outflow Tract Name Value Normal LVOT 2D LVOT Diameter 2.07 cm LVOT Doppler LVOT Peak Gradient 4 mmHg LVOT Mean Gradient 3 mmHg LVOT VTI 17.31 cm LVOT VTI/AV VTI Ratio
[2020-08-20 02:05] LABS: Hemoglobin 7.7 g/dL (14.0-18.0)
--- NOTE | 2020-08-20 06:29 | ECG_ITS ---
Measurements Intervals [place] Rate: 123 P: [place]: 0 QRS: -50 QRSD: 103 T: 86 QT: 302 QTc: 433 Interpretive Statements ATRIAL FLUTTER/TACHYCARDIA WITH RAPID VENTRICULAR RESPONSE LEFT ANTERIOR FASCICULAR BLOCK NONSPECIFIC ST & T-WAVE ABNORMALITY- HIGH LATERAL LEADS BASELINE ARTIFACT- I, II, III, AVR, AVL, AVF, V1 ABNORMAL ECG Electronically Signed On 08-20-2020 6:52:08 TRANSFER DRIVER by Albert Gutierrez D.O.
--- NOTE | 2020-08-20 06:53 | PM.EVENT ---
Event Note Event Note Event Note: Transfer Note This is a 79 year old male who is being treated for anemia with blood transfusions and renal stones who went into atrial fibrillation last night and was treated with digoxin IV. This morning the patient again went into tachycardia. EKG demonstrated atrial fibrillation w/ RVR. On my encounter with the patient he denies any chest pain, palpitations, or shortness of breath at this time. We will transfer the patient to IMU for closer monitoring, continue telemetry, Cardizem IV bolus and drip for rate control. TSH w/ reflex T4, Echocardiogram. The patient is not a candidate for anticoagulation given his low blood counts and transfusions he is receiving.
[2020-08-20 07:21] LABS: Glucose Point of Care 169 (65-105)
--- NOTE | 2020-08-20 07:29 | PM.CNNEP ---
Assessment and Plan Assessment and plan (1) ARF (acute renal failure): Code(s): N17.9 - Acute kidney failure, unspecified Status: Acute Assessment and Plan: The patient has seeming chronic kidney disease. His creatinine was normal in 2019. 2.3 in January of 2020. And now the creatinine is up to 4.7. The chronic kidney disease could be from hypertension and diabetes. He has not been evaluated for this however. The patient has acute kidney injury. His worsened creatinine could have something to do with obstruction from his stones. He could have some sort of a glomerulonephritis or interstitial nephritis. Vascular insult would be unlikely in this scenario. Dehydration is a possibility if he was having problems with stones and was not eating. At this point will get a renal panel, urine electrolytes and eosinophils, and a renal ultrasound. (2) Kidney stone: Code(s): N20.0 - Calculus of kidney Status: Acute Assessment and Plan: The patient has had kidney stones. CT abdomen showed bilateral nephrolithiasis with moderate hydronephrosis on both side. This was day before yesterday. KUB showed bilateral nephrolithiasis. So we can follow KUBs going forward. Will wait until outpatient to do 24hour urines for stone analysis says he just had instrumentation done. We can check a PTH and uric acid however. I encouraged him to drink plenty of fluid and avoid salty foods. (3) Irregular heart beat: Code(s): I49.9 - Cardiac arrhythmia, unspecified Status: Acute Assessment and Plan: since I saw him today he was transferred to the IMU (4) Diabetes: Code(s): E11.9 - Type 2 diabetes mellitus without complications Status: Chronic Assessment and Plan: on Accu-Cheks and sliding-scale insulin (5) BPH (benign prostatic hyperplasia): Code(s): N40.0 - Benign prostatic hyperplasia without lower urinary tract symptoms Status: Chronic Assessment and Plan: sees Urology History of Present Illness Reason for Consult Consult date: 08/20/20 Chief Complaint Chief complaint: Gross Hematuria History of Present Illness Narrative: Jovanny is a very pleasant 79-year-old gentleman who has kidney stones and a high creatinine. He says he has had kidney stones for a couple of years. He thinks he passes 1 every month. He sees urology frequently. yesterday he had a procedure done on the stones. He has never had pancreatitis. He does have some constipation. He has not been told about high calcium. He has never had the gout. He has no family history of kidney disease or kidney stones. He had some fast heart rate so was admitted to the hospital. Upon admission it was noted that his creatinine had been high at the end of July so renal consultation was requested. The patient says that he feels better today. He has history of diabetes. He says that sugars have been under pretty good control. He does not have retinopathy. The patient has arthritis which is chronic. The patient has hyperlipidemia, shingles, bladder infections, esophageal ulcer. Review of Systems Constitutional: Constitutional: Reports no additional constitutional complaints Eyes: Eyes: Reports no additional eye complaints ENT: Reports system reviewed and no additional complaints, except as documented Cardiovascular: Cardiovascular: Reports no additional cardiovascular complaints Respiratory: Respiratory: Reports no additional respiratory complaints Gastrointestinal: Gastrointestinal: Reports no additional gastrointestinal complaints Genitourinary: Genitourinary: Reports no additional male genitourinary complaints Musculoskeletal: Musculoskeletal: Reports no additional musculoskeletal complaints Integumentary/Breasts: Skin/Breast: Reports system reviewed and no additional complaints, except as docu Neurologic: Rep
--- NOTE | 2020-08-20 07:29 | PC.NURSE ---
informed alicia myrick of patient transfer
[2020-08-20 07:38] LABS: Basophils Percent Auto 0.3 % (0.2-1.2); Eosinophils Absolute Auto 0.1 K/mm3 (0-0.3); Hematocrit 25.8 % (42.0-52.0); Hemoglobin 8.1 g/dL (14.0-18.0); Immature Granulocyte Absolute 0.09 K/mm3 (0.00-0.031); Immature Granulocyte Percent A 0.8 % (0-0.5); Lymphocytes Absolute Auto 0.78 K/mm3 (0.9-3.2); Lymphocytes Percent Auto 7.2 % (18.3-44.2); Mean Corpuscular HGB Conc 31.4 g/dl (32-36); Mean Corpuscular Hemoglobin 24.8 pg (26-34); Mean Corpuscular Volume 78.9 fl (80-100); Mean Platelet Volume 9.6 fl (7.4-10.4); Monocytes Percent Auto 9.3 % (2.6-8.5); Neutrophils Absolute Auto 8.9 K/mm3 (1.3-6.7); Neutrophils Percent Auto 81.4 % (45.5-73.1); Platelet Count Result 226 k/mm3 (150-375); Red Blood Count 3.27 M/mm3 (4.6-6.20); Red Cell Distribution Width 17.2 % (11.5-14.5); White Blood Count 10.9 K/mm3 (4.5-10.0)
--- NOTE | 2020-08-20 07:38 | PC.NURSE ---
transferred to IMU room 206 after calling report to Deana MONTGOMERY. all belongings verified.
[2020-08-20 07:53] LABS: Alanine Aminotransferase 13 U/L (4-50); Albumin Level 3.5 g/dL (3.5-5.1); Alkaline Phosphatase 122 U/L (38-126); Anion Gap 9 mmol/L (8-16); Aspartate Amino Transferase 19 U/L (17-59); Bilirubin,Total 0.5 mg/dL (0.2-1.3); Blood Urea Nitrogen 52 mg/dL (9-20); Calcium 8.8 mg/dL (8.4-10.2); Carbon Dioxide 21 mmol/L (22-30); Chloride 108 mmol/L (98-107); Estimated CRCL calculation 16 ml/min; Estimated Glomerular Filt Rate 11; Glucose 178 mg/dL (75-110); Magnesium 1.7 mg/dL (1.6-2.3); Potassium 4.2 mmol/L (3.4-5.0); Sodium 138 mmol/L (137-145)
--- NOTE | 2020-08-20 08:00 | PM.CNCAR ---
Assessment and Plan Assessment and plan (1) Anemia: Code(s): D64.9 - Anemia, unspecified Status: Acute Assessment and Plan: S/P 2 units PRBC. (2) HLD (hyperlipidemia): Code(s): E78.5 - Hyperlipidemia, unspecified Status: Chronic Assessment and Plan: Continue Lovastatin. (3) Atrial tachycardia, paroxysmal: Code(s): I47.1 - Supraventricular tachycardia Status: Acute Assessment and Plan: PAT/flutter. This is likely due to worsened anemia and s/p urologic procedure. Will not start Diltiazem bolus or drip given BP is 119 systolic and HR 128 bpm. Will start Metoprolol Tartate 25 mg PO every 6 hours with parameters. No anticoagulation given hematuria and anemia. Check Mag level. Obtain echo. (4) ARF (acute renal failure): Code(s): N17.9 - Acute kidney failure, unspecified Status: Acute Assessment and Plan: Cr trending up. Consider nephrology consult. History of Present Illness History of Present Illness Consult date/time: 08/20/20 08:00 Reason for consult: Rapid HR. 79 yr old man was admitted after having urologic procedure (urethral dilation, cystoscopy, right ureteroscopy, bilateral ureteral stent placement by Dr. Blankenship) for kidney stones. He has a history of dyslipidemia and no other cardiac history. Wilson is in place with blood in it. It was noted on telemetry that his HR increased to 130's bpm and EKG shows atrial flutter/tachycardia. He was then transferred to IMU from [address] [place] [address] for Diltiazem drip which is being started now. He has a history of anemia with Hb 8-9 gm range that went to 6.8 yesterday after procedure, given 2 units of PRBC and now it is 7.7 gms. Denies chest pain, sob, orthopnea, PND, edema. He can walk about 1 block normally. Reason For Visit: Gross Hematuria Review of Systems Review of Systems: All systems reviewed & are unremarkable except as noted in HPI and below Constitutional: Constitutional: Reports as per HPI, Denies chills and Denies fatigue Cardiovascular: Cardiovascular: Reports as per HPI, Denies chest pain, Denies leg edema and Denies lightheadedness Respiratory: Respiratory: Reports as per HPI and Denies dyspnea Gastrointestinal: Gastrointestinal: Reports as per HPI and Denies abdominal pain Genitourinary: Genitourinary: Reports as per HPI and Reports hematuria Musculoskeletal: Musculoskeletal: Reports as per HPI Neurologic: Reports as per HPI, Denies dizziness and Denies syncope [facility] Past Medical History Medical History (Updated 08/20/20 @ 08:09 by Albert Gutierrez DO) Arthritis BPH (benign prostatic hyperplasia) CRF (chronic renal failure) Diabetes Esophageal ulcer Full dentures GERD (gastroesophageal reflux disease) HLD (hyperlipidemia) Kidney stone Seasonal allergies Shingles UTI (urinary tract infection) Wears glasses Surgical History Surgical History (Updated 08/19/20 @ 16:00 by Esthela Jarrett NP) H/O colonoscopy H/O dilation of urethra History of arthroscopy of knee right History of laminectomy Status post cystoscopy Family History Family History (Updated 08/19/20 @ 15:53 by Esthela Jarrett NP) Unknown Unknown family medical history Social History Social History (Updated 08/19/20 @ 15:53 by Esthela Jarrett NP) Social History: 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 The patient stopped smoking in 1983 he said that he smoked up to 4 packs of cigarettes a day. 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 His no biological children but has 3 step children. No alcohol marijuana or illicit drug use. Smoking packs per day: 4 Smoking cigarettes per day: 80.0 Years smoked: 32 Smoking pack-years: 128.00 Smoking status: Former smoker Tobacco type: cigarettes Smoking end date: 08/15/83 Alcohol intake: current Drinks per week: 2 Substance use: never Substance use type: does not use [facility]
[2020-08-20 08:13] LABS: Phosphorus 3.5 mg/dL (2.5-4.5)
[2020-08-20 08:18] LABS: Hemoglobin A1C 6.8 % (<5.7)
[2020-08-20 08:19] LABS: Iron 11 ug/dL (49-181)
[2020-08-20 08:30] LABS: Percent Iron Saturation 3 % (20-50)
[2020-08-20] MEDS: METOPROLOL TARTRATE 25 MG TABLET PO ×3 (08:51→21:41)
[2020-08-20] MEDS: CYANOCOBALAMIN 1,000 MCG TABLET 1000 MCG PO (08:53)
[2020-08-20] MEDS: DOCUSATE SODIUM 100 MG CAPSULE PO ×2 (08:53→17:23)
[2020-08-20] MEDS: LOVASTATIN 20 MG TABLET 40 MG PO (08:53)
[2020-08-20 08:54] LABS: Thyroid Stimulating Hormone Reflex 0.762 uIU/mL (0.465-4.68)
[2020-08-20] MEDS: EUCERIN CREAM 120 GM JAR 1 APPLIC TOPICAL (08:54)
[2020-08-20] MEDS: traMADol HCL (*CRX) 50 MG TABLET PO ×2 (08:59→17:23)
[2020-08-20 09:12] LABS: Folic Acid 8.5 ng/mL (2.76->20)
[2020-08-20] MEDS: PERFLUTREN LIPID MICROSPHERES 1.5 ML VIAL DILUTED TO 10 ML TOTAL VOLUME IV PUSH (10:45)
[2020-08-20 12:34] LABS: Glucose Point of Care 161 (65-105)
[2020-08-20 13:02] LABS: Hematocrit 25.8 % (42.0-52.0); Hemoglobin 8.2 g/dL (14.0-18.0)
[2020-08-20 13:16] LABS: Anion Gap 9 mmol/L (8-16); Blood Urea Nitrogen 49 mg/dL (9-20); Calcium 8.7 mg/dL (8.4-10.2); Carbon Dioxide 19 mmol/L (22-30); Chloride 110 mmol/L (98-107); Estimated CRCL calculation 17 ml/min; Estimated Glomerular Filt Rate 12; Glucose 155 mg/dL (75-110); Sodium 138 mmol/L (137-145)
--- NOTE | 2020-08-20 13:30 | ECG_ITS ---
Measurements Intervals [place] Rate: 86 P: 17 SD: 198 QRS: -34 QRSD: 114 T: 32 QT: 346 QTc: 414 Interpretive Statements SINUS RHYTHM LEFT AXIS DEVIATION INTRAVENTRICULAR CONDUCTION DELAY BASELINE ARTIFACT- I, II, AVR, V1-V2 BORDERLINE ECG Electronically Signed On 08-20-2020 14:22:14 [employer] by Albert Gutierrez D.O.
--- NOTE | 2020-08-20 15:57 | PM.IMPN ---
Progress Note: A&P Assessment and Plan (1) Acute on chronic kidney failure: Code(s): N17.9 - Acute kidney failure, unspecified; N18.9 - Chronic kidney disease, unspecified Status: Acute Assessment and Plan: CKD and baseline creatinine appears to be about 2.3. In late July 2020 creatinine was 4.8 and now creatinine is 5.0 today. Chronic kidney disease is likely explained by hypertension and diabetes mellitus. Injury is less clear, may be secondary to obstructive uropathy from stones or may be pre renal secondary to dehydration as poor appetite was noted. Renal ultrasound unremarkable and no hydronephrosis noted. Appreciate nephrology consultation Monitor renal function closely and avoid nephrotoxic agents. IV fluid hydration will be continued (2) Kidney stone: Code(s): N20.0 - Calculus of kidney Status: Acute Assessment and Plan: Patient presented with gross hematuria. CT a/p performed 08/18 showed large bilateral nephrolithiasis with mild to moderate hydroureteronephrosis. He underwent bilateral ureteral stent placement on 08/19/[address] Blankenship. He tolerated the procedure well. Repeat renal ultrasound today showed no residual hydronephrosis. Appreciate urology consultation He will likely need definitive stone management at a later date. Continue Wilson catheter at this time per Urology (3) Altered mental status: Code(s): R41.82 - Altered mental status, unspecified Status: Acute Assessment and Plan: Patient oriented to self and no use in the hospital but could not recall the name. He is slow to respond to all questions and does not answer all questions appropriately. His notes that this is not typical baseline for him. Etiology for this is not entirely clear and I am not sure how he was behaving prior to having his procedure. This may be secondary to anesthesia, although his surgery was >24 hours ago. Given the appearance of his urine, UTI is not excludable, although he does not really have any other signs or symptoms to suggest underlying infection. Stroke considered although less likely as he has no focal neuro deficits noted on exam. TSH wnl. Check UA with reflex culture. Will consider addition of IV antibiotics if urinalysis abnormal Obtain head CT Monitor symptoms closely (4) Anemia: Code(s): D64.9 - Anemia, unspecified Status: Acute Assessment and Plan: Patient noted to be anemic prior to procedure. A change of presentation was 6.8 and. He underwent transfusion of 2 units pRBC. This may be an acute on chronic picture. I suspect patient has chronic anemia secondary to chronic disease from kidney failure and may have an acute component from hematuria. H&H stable following transfusion. Iron panel shows mixed picture. B12 and folate within limits. Vital signs are stable and he has no signs or symptoms to suggest active bleeding Monitor H&H q6h and transfuse as needed Given significantly decreased iron stores, will administer IV venofer (5) Atrial tachycardia: Code(s): I47.1 - Supraventricular tachycardia Status: Acute Assessment and Plan: Patient noted to have atrial flutter with heart rate up to 130s. This was likely exacerbated by anemia and surgical procedure. Electrolytes are stable. Appreciate cardiology consultation Echo has been ordered and is pending Begin metoprolol titrate 25 mg p.o. q.6 per cardiology recommendations. No anticoagulation will be initiated in light of anemia and hematuria. (6) Diabetes: Code(s): E11.9 - Type 2 diabetes mellitus without complications Status: Chronic Assessment and Plan: A1c is 6.8. It appears the patient is not on any hypoglycemic agents. Blood sugars have been stable. Continue Accu-Cheks ACHS, SSI, hypoglycemic protocol. Subjective Date/time seen: 08/20/20 15:57 Interval history: Date of service:
[2020-08-20 16:28] LABS: Add Urine Microscopic? YES; Appearance Urine Turbid (Clear); Bacteria Urine 1+ /hpf; Bilirubin Urine Negative (Negative); Blood Urine 3+ (Negative); Color Urine Yellow (Yellow); Glucose Urine UA Negative (Negative); Ketones Urine Negative (Negative); Leukocyte Esterase Ur 2+ LEU/UL (Negative); Mucus Urine Rare /lpf; Nitrate Urine Negative (Negative); Protein Urine 2+ mg/dL (Negative); RBC Urine >75 /hpf (0-2); Specific Grav Ur 1.014 (1.001-1.035); Squamous Epithelial Cell Urine Few /hpf (Few); Urobilinogen Urine Negative mg/dL (<2.0); WBC Urine >75 /hpf
[2020-08-20 16:40] LABS: Creatinine Urine 109.1 mg/dL; Sodium Urine Random 53 meq/L
[2020-08-20 16:47] LABS: Total Protein Urine Random 297 mg/dL; Ur Ttl Prot Creatinine Ratio 2.72 mg/mg (0-0.20)
[2020-08-20 16:57] LABS: Hematocrit 25.1 % (42.0-52.0); Hemoglobin 7.8 g/dL (14.0-18.0)
[2020-08-20 17:07] LABS: Creatine Kinase 122 U/L (55-170)
[2020-08-20] MEDS: IRON SUCROSE COMPLEX 200 MG in SODIUM CHLORIDE 0.9% IV 50 ML 120 MG IVPB (17:08)
[2020-08-20] MEDS: SODIUM CHLORIDE 0.9% IV 1,000 ML 100 ML IV CONT (17:08)
[2020-08-20 17:09] LABS: Uric Acid 8.4 mg/dL (3.5-8.5)
[2020-08-20 17:17] LABS: Complement C3 143 mg/dL (88-165)
[2020-08-20 17:21] LABS: Parathyroid Intact 51.9 pg/mL (7.5-53.5)
[2020-08-20 17:21] LABS: Glucose Point of Care 152 (65-105)
[2020-08-20 20:11] LABS: Glucose Point of Care 142 (65-105)
[2020-08-20] MEDS: TAMSULOSIN HCL 0.4 MG CAPSULE PO (21:41)
[2020-08-21] VITALS (17 sets, daily range): BP systolic 119–140; BP diastolic 59–67; PULSE 66–86; RESP 18–22; TEMP 36.2–37.3; O2SAT 96–100
[2020-08-21 00:36] LABS: Hematocrit 24.5 % (42.0-52.0); Hemoglobin 7.6 g/dL (14.0-18.0)
[2020-08-21] MEDS: SODIUM CHLORIDE 0.9% IV 1,000 ML 100 ML IV CONT ×2 (04:22→15:14)
[2020-08-21 05:34] LABS: Hematocrit 24.5 % (42.0-52.0); Hemoglobin 7.3 g/dL (14.0-18.0); Mean Corpuscular HGB Conc 29.8 g/dl (32-36); Mean Corpuscular Hemoglobin 24.2 pg (26-34); Mean Corpuscular Volume 81.1 fl (80-100); Platelet Count Result 214 k/mm3 (150-375); Red Blood Count 3.02 M/mm3 (4.6-6.20); Red Cell Distribution Width 17.7 % (11.5-14.5); White Blood Count 10.4 K/mm3 (4.5-10.0)
[2020-08-21 05:44] LABS: Alanine Aminotransferase 9 U/L (4-50); Albumin Level 3.2 g/dL (3.5-5.1); Alkaline Phosphatase 102 U/L (38-126); Anion Gap 8 mmol/L (8-16); Aspartate Amino Transferase 20 U/L (17-59); Bilirubin,Total 0.4 mg/dL (0.2-1.3); Blood Urea Nitrogen 47 mg/dL (9-20); Calcium 8.5 mg/dL (8.4-10.2); Carbon Dioxide 21 mmol/L (22-30); Chloride 110 mmol/L (98-107); Estimated CRCL calculation 19 ml/min; Estimated Glomerular Filt Rate 14; Glucose 130 mg/dL (75-110); Phosphorus 3.8 mg/dL (2.5-4.5); Potassium 3.8 mmol/L (3.4-5.0); Sodium 139 mmol/L (137-145)
--- NOTE | 2020-08-21 08:49 | PM.PNNEP ---
Progress Note: A&P Assessment and Plan (1) ARF (acute renal failure): Code(s): N17.9 - Acute kidney failure, unspecified Status: Acute Assessment and Plan: The patient has apparent chronic kidney disease. His creatinine was normal in 2019. 2.3 in January of 2020. And now the creatinine is up to 4.7. Renal ultrasound shows no obstruction. Urine electrolytes are non pre renal He does have lots of protein in the urine. However he also has a bladder infection. The chronic kidney disease could be from hypertension and diabetes. However the progression is a bit too fast. He has an infection right now which could be playing a role in his high creatinine or he could have some sort of a glomerulonephritis. We can't really do a biopsy now because of the current infection. So will get serology and immunofixation see what this shows. In the meantime will continue IV fluids and continue antibiotics. (2) Kidney stone: Code(s): N20.0 - Calculus of kidney Status: Acute Assessment and Plan: The patient has had kidney stones. CT abdomen showed bilateral nephrolithiasis with moderate hydronephrosis on both side. This was day before yesterday. KUB showed bilateral nephrolithiasis. So we can follow KUBs going forward. Will wait until outpatient to do 24hour urines for stone analysis says he just had instrumentation done. Uric acid is very high. Will start allopurinol. PTH is okay. I encouraged him to drink plenty of fluid and avoid salty foods. (3) Irregular heart beat: Code(s): I49.9 - Cardiac arrhythmia, unspecified Status: Acute Assessment and Plan: Rate control is good (4) Diabetes: Code(s): E11.9 - Type 2 diabetes mellitus without complications Status: Chronic Assessment and Plan: on Accu-Cheks and sliding-scale insulin (5) BPH (benign prostatic hyperplasia): Code(s): N40.0 - Benign prostatic hyperplasia without lower urinary tract symptoms Status: Chronic Assessment and Plan: sees Urology Subjective Date/time seen: 08/21/20 08:49 Interval history: Patient is alert. Much more so than yesterday. He is not having any chest pain or shortness of breath. Review of Systems Cardiovascular: Cardiovascular: Reports no additional cardiovascular complaints Respiratory: Respiratory: Reports no additional respiratory complaints Gastrointestinal: Gastrointestinal: Reports no additional gastrointestinal complaints Genitourinary: Genitourinary: Reports no additional male genitourinary complaints Exam Narrative: Exam Narrative: WDWN in NAD skin no rash head ncat lungs clear cor reg no rub abd BS+ nontender and soft ext no edema. Objective Data Vital Signs Vital Signs: Vital Signs - 24 hr 08/20/20 08:51 08/20/20 12:00 08/20/20 12:15 Temperature Pulse Rate 122 H 105 H 95 Respiratory Rate Blood Pressure Pulse Oximetry 08/20/20 12:40 08/20/20 14:00 08/20/20 16:00 Temperature 37.2 C Pulse Rate 96 85 90 Respiratory Rate 20 Blood Pressure 122/61 Pulse Oximetry 97 08/20/20 16:02 08/20/20 18:00 08/20/20 20:00 Temperature 36.8 C Pulse Rate 91 87 85 Respiratory Rate 24 H Blood Pressure 139/63 Pulse Oximetry 96 08/20/20 20:41 08/20/20 21:41 08/20/20 22:00 Temperature 36.2 C L Pulse Rate 87 86 86 Respiratory Rate 18 Blood Pressure 137/62 Pulse Oximetry 99 08/21/20 00:00 08/21/20 02:00 08/21/20 04:00 Temperature 36.2 C L 37.1 C Pulse Rate 85 72 73 Respiratory Rate 18 20 Blood Pressure 140/60 129/60 Pulse Oximetry 97 96 08/21/20 06:00 Temperature Pulse Rate 70 Respiratory Rate Blood Pressure Pulse Oximetry Intake/Output Intake/Output: Intake & Output 08/18/20 08/19/20 08/20/20 08/21/20 23:59 23:59 23:59 23:59 Intake Total 2210 135 9136 Output Total 475 3300 Balance 1440 -2820 1000 Meds/Results Medicati
--- NOTE | 2020-08-21 09:29 | WPDUROPN2 ---
Progress Note: A&P Assessment and Plan (1) ARF (acute renal failure): Code(s): N17.9 - Acute kidney failure, unspecified Status: Acute Assessment and Plan: Improving slowly with stent placement, benito placement and antibiotics. (2) BPH (benign prostatic hyperplasia): Code(s): N40.0 - Benign prostatic hyperplasia without lower urinary tract symptoms Status: Chronic Assessment and Plan: Keep benito in until further notice. Manually irrigate q shift and PRN. (3) UTI (urinary tract infection): Code(s): N39.0 - Urinary tract infection, site not specified Status: Acute Assessment and Plan: Continue IV antibiotics, tailor to culture results. Subjective Subjective Date/Time Seen: 08/21/20 09:29 POD #2 TURP, Circumcision, Excision of Penile Lesion Urine is clearing up nicely with the addition of Rocephin. It is yellow, with sediment but no longer bloody and he has less sediment. He seems to be feeling better today as well. Review of Systems Respiratory: Respiratory: Reports no additional respiratory complaints Gastrointestinal: Gastrointestinal: Denies abdominal pain, Denies nausea and Denies vomiting Genitourinary: Genitourinary: Denies hematuria and Denies flank pain Exam Resp: Effort & Inspection: normal respiratory effort Cardio: Rate: regular rate GI: GI Palp: Yes Soft to palpation and No Tenderness to palpation present (GI) : General: Yes no CVA tenderness Urinary Catheter: Urinary Catheter: patent and draining and urine cloudy Extrem: General: edema bilateral Objective Data Vital Signs Vital Signs: Vital Signs - 24 hr 08/20/20 12:00 08/20/20 12:15 08/20/20 12:40 Temperature 98.9 F Pulse Rate 105 H 95 96 Respiratory Rate 20 Blood Pressure 122/61 Pulse Oximetry 97 08/20/20 14:00 08/20/20 16:00 08/20/20 16:02 Temperature 98.3 F Pulse Rate 85 90 91 Respiratory Rate 24 H Blood Pressure 139/63 Pulse Oximetry 96 08/20/20 18:00 08/20/20 20:00 08/20/20 20:41 Temperature 97.1 F L Pulse Rate 87 85 87 Respiratory Rate 18 Blood Pressure 137/62 Pulse Oximetry 99 08/20/20 21:41 08/20/20 22:00 08/21/20 00:00 Temperature 97.2 F L Pulse Rate 86 86 85 Respiratory Rate 18 Blood Pressure 140/60 Pulse Oximetry 97 08/21/20 02:00 08/21/20 04:00 08/21/20 06:00 Temperature 98.7 F Pulse Rate 72 73 70 Respiratory Rate 20 Blood Pressure 129/60 Pulse Oximetry 96 Intake/Output Intake/Output: Intake & Output 08/18/20 08/19/20 08/20/20 08/21/20 23:59 23:59 23:59 23:59 Intake Total 6620 972 3493 Output Total 475 3300 Balance 1440 -2820 1000 Meds/Results Medications: Active Medications Generic Name Dose Route Start Last Admin Trade Name Freq PRN Reason Stop Dose Admin Cyanocobalamin 1,000 mcg 08/19/20 15:10 08/20/20 08:53 Cyanocobalamin 1,000 Mcg Tablet PO 1,000 mcg DAILY ROHAN Administration Dextrose 12.5 gm 08/19/20 15:51 Dextrose 50% 25 Gm/50 Ml Syringe IV PUSH PRN PRN Hypoglycemia Protocol Docusate Sodium 100 mg 08/19/20 17:00 08/20/20 17:23 Docusate Sodium 100 Mg Capsule PO 100 mg BID ROHAN Administration Epoetin Rafy-epbx 10,000 units 08/21/20 09:00 Epoetin Rafy-Epbx 10,000 Units/Ml Vial SUB-Q TuThSa@0900 ROHAN Furosemide 40 mg 08/19/20 15:03 08/19/20 16:56 Furosemide 40 Mg Tablet PO 40 mg PRN PRN Administration SWELLING Glucagon 1 mg 08/19/20 15:51 Glucagon For Inj 1 Mg Vial IM PRN PRN Hypoglycemia Protocol Glucose 15 gm 08/19/20 15:51 Glucose Oral Gel 15 Gm Of Glucse In 37.5 Gm Tube PO PRN PRN Hypoglycemia Protocol Dextrose 1,000 mls @ 100 mls/hr 08/19/20 15:51 Dextrose 5% 1,000 Ml IVPB PRN PRN Hypoglycemia Protocol Sodium Chloride 1,000 mls @ 100 mls/hr 08/20/20 16:15 08/21/20 04:22 Normal Saline Iv IV CONT 100 mls/hr .Q10
[2020-08-21 09:36] LABS: Creatine Kinase 581 U/L (55-170)
[2020-08-21 09:45] LABS: Complement C3 141 mg/dL (88-165)
[2020-08-21 09:54] LABS: Erythrocyte Sedimentation Rate > 140 mm/hr (0-20)
[2020-08-21] MEDS: traMADol HCL (*CRX) 50 MG TABLET PO ×2 (10:17→17:10)
[2020-08-21] MEDS: EUCERIN CREAM 120 GM JAR 1 APPLIC TOPICAL (10:18)
[2020-08-21] MEDS: IRON SUCROSE COMPLEX 200 MG in SODIUM CHLORIDE 0.9% IV 50 ML 120 MG IVPB (10:18)
[2020-08-21] MEDS: DOCUSATE SODIUM 100 MG CAPSULE PO ×2 (10:19→17:05)
[2020-08-21] MEDS: CYANOCOBALAMIN 1,000 MCG TABLET 1000 MCG PO (10:19)
[2020-08-21] MEDS: METOPROLOL TARTRATE 25 MG TABLET PO ×2 (10:19→21:13)
[2020-08-21] MEDS: LOVASTATIN 20 MG TABLET 40 MG PO (10:21)
[2020-08-21 12:12] LABS: Glucose Point of Care 147 (65-105)
--- NOTE | 2020-08-21 12:27 | PM.PNCARD ---
Progress Note: A&P Assessment and Plan (1) Anemia: Code(s): D64.9 - Anemia, unspecified Status: Acute Assessment and Plan: S/P 2 units PRBC. Receiving IV iron infusion. (2) HLD (hyperlipidemia): Code(s): E78.5 - Hyperlipidemia, unspecified Status: Chronic Assessment and Plan: Continue Lovastatin. (3) Atrial tachycardia, paroxysmal: Code(s): I47.1 - Supraventricular tachycardia Status: Acute Assessment and Plan: PAT/flutter. This is likely due to worsened anemia and s/p urologic procedure. Will not start Diltiazem bolus or drip given BP is 119 systolic and HR 128 bpm. Will start Metoprolol Tartate 25 mg PO every 6 hours with parameters. No anticoagulation given hematuria and anemia. Had gnosticism of sinus rhythm, but had 15 beat run on 08/21/19 at 04:57 (4) ARF (acute renal failure): Code(s): N17.9 - Acute kidney failure, unspecified Status: Acute Assessment and Plan: Acute on chronic CKD. Subjective Date/time seen: 08/21/20 12:27 Denies chest pain or sob. Exam Const: General: cooperative, healthy appearing and comfortable Resp: Auscultation: clear to auscultation bilaterally, no crackles, no rales, no rhonchi and no wheezes Cardio: Jugular venous distension: no JVD Rate: regular rate Rhythm: regular rhythm Heart sounds: no murmurs Peripheral pulses: dorsalis pedis present GI: GI Palp: No abdominal tenderness and Yes Soft to palpation Urinary Catheter: Urinary Catheter: urine red Neuro: General: oriented to person and oriented to place Extrem: Right lower extremity: no edema Left lower extremity: no edema Objective Data Vital Signs Vital Signs: Vital Signs - 24 hr 08/20/20 12:40 08/20/20 14:00 08/20/20 16:00 Temperature 98.9 F Pulse Rate 96 85 90 Respiratory Rate 20 Blood Pressure 122/61 Pulse Oximetry 97 08/20/20 16:02 08/20/20 18:00 08/20/20 20:00 Temperature 98.3 F Pulse Rate 91 87 85 Respiratory Rate 24 H Blood Pressure 139/63 Pulse Oximetry 96 08/20/20 20:41 08/20/20 21:41 08/20/20 22:00 Temperature 97.1 F L Pulse Rate 87 86 86 Respiratory Rate 18 Blood Pressure 137/62 Pulse Oximetry 99 08/21/20 00:00 08/21/20 02:00 08/21/20 04:00 Temperature 97.2 F L 98.7 F Pulse Rate 85 72 73 Respiratory Rate 18 20 Blood Pressure 140/60 129/60 Pulse Oximetry 97 96 08/21/20 06:00 08/21/20 09:00 08/21/20 09:10 Temperature 97.1 F L 99.1 F Pulse Rate 70 75 74 Respiratory Rate 18 20 Blood Pressure 124/59 L 119/63 Pulse Oximetry 99 98 08/21/20 10:19 08/21/20 12:00 Temperature 97.3 F L Pulse Rate 73 79 Respiratory Rate 20 Blood Pressure 134/62 Pulse Oximetry 98 Intake/Output Intake/Output: Intake & Output 08/18/20 08/19/20 08/20/20 08/21/20 23:59 23:59 23:59 23:59 Intake Total 1723 994 4067 Output Total 475 3300 1000 Balance 1440 -2820 480 Meds/Results Medications: Active Medications Generic Name Dose Route Start Last Admin Trade Name Freq PRN Reason Stop Dose Admin Cyanocobalamin 1,000 mcg 08/19/20 15:10 08/21/20 10:19 Cyanocobalamin 1,000 Mcg Tablet PO 1,000 mcg DAILY ROHAN Administration Dextrose 12.5 gm 08/19/20 15:51 Dextrose 50% 25 Gm/50 Ml Syringe IV PUSH PRN PRN Hypoglycemia Protocol Docusate Sodium 100 mg 08/19/20 17:00 08/21/20 10:19 Docusate Sodium 100 Mg Capsule PO 100 mg BID ROHAN Administration Epoetin Rafy-epbx 10,000 units 08/21/20 09:00 Epoetin Rafy-Epbx 10,000 Units/Ml Vial SUB-Q TuThSa@0900 ROHAN Furosemide 40 mg 08/19/20 15:03 08/19/20 16:56 Furosemide 40 Mg Tablet PO 40 mg PRN PRN Administration SWELLING Glucagon 1 mg 08/19/20 15:51 Glucagon For Inj 1 Mg Vial IM PRN PRN Hypoglycemia Protocol Glucose 15 gm 08/19/20 15:51 Glucose Oral Gel 15 Gm Of Glucse In 37.5 Gm Tube PO PRN PRN Hypoglycemia Protocol
[2020-08-21] MEDS: EPOETIN ALFA-EPBX 10,000 UNITS/ML VIAL 10000 UNITS SUB-Q (15:20)
[2020-08-21 16:02] LABS: Glucose Point of Care 137 (65-105)
--- NOTE | 2020-08-21 16:17 | PM.IMPN ---
Progress Note: A&P Assessment and Plan (1) Acute on chronic kidney failure: Code(s): N17.9 - Acute kidney failure, unspecified; N18.9 - Chronic kidney disease, unspecified Status: Acute Assessment and Plan: He has a history of CKD and baseline creatinine appears to be about 2.3. In late July 2020 creatinine was 4.8 and creatinine was 5.0 at presentation. Chronic kidney disease is likely explained by hypertension and diabetes mellitus. Acute njury is less clear, may be secondary to obstructive uropathy from stones, actue UTI, or pre renal secondary to dehydration as poor appetite was noted. Renal ultrasound unremarkable and no hydronephrosis noted. Slow improvement of renal function today Appreciate nephrology consultation Monitor renal function closely and avoid nephrotoxic agents. IV fluid hydration will be continued Serologic tests pending. 24 hour urine is being collected. (2) Kidney stone: Code(s): N20.0 - Calculus of kidney Status: Acute Assessment and Plan: Patient presented with gross hematuria. CT a/p performed 08/18 showed large bilateral nephrolithiasis with mild to moderate hydroureteronephrosis. He underwent bilateral ureteral stent placement on 08/19/[address] Blankenship. He tolerated the procedure well. Repeat renal ultrasound today showed no residual hydronephrosis. Appreciate urology consultation He will likely need definitive stone management at a later date. Continue Wilson catheter at this time per Urology (3) UTI (urinary tract infection): Code(s): N39.0 - Urinary tract infection, site not specified Status: Acute Assessment and Plan: Urinalysis grossly abnormal. Preliminary urine culture shows Gram-negative bacilli isolates. He has very mild leukocytosis. He is afebrile. Continue IV ceftriaxone, started on 08/20/2020 Continue Wilson catheter Await culture results and tailor antibiotics accordingly (4) Altered mental status: Code(s): R41.82 - Altered mental status, unspecified Status: Acute Assessment and Plan: Patient exhibited confusion in conversation yesterday and was A&Ox2, which is not consistent with his baseline. This is most likely secondary to acute UTI that was noted yesterday. He is now A&Ox4 today and confusion seems to have resolved. Head CT no acute findings. Continue treatment with IV antibiotics for urinary tract infection Monitor symptoms closely (5) Anemia: Code(s): D64.9 - Anemia, unspecified Status: Acute Assessment and Plan: Patient noted to be anemic prior to procedure. Hemoglobin at presentation was 6.8. He underwent transfusion of 2 units pRBC on 08/19/2020. This may be an acute on chronic picture. I suspect patient has chronic anemia of chronic disease from kidney failure and may have an acute component from hematuria. H&H improved following transfusion. Iron panel shows mixed picture. B12 and folate within limits. Vital signs are stable and he has no signs or symptoms to suggest active bleeding. Hemoglobin lower today at 7.3. Monitor H&H q6h and transfuse as needed. Repeat this evening Continue IV Venofer (6) Atrial tachycardia: Code(s): I47.1 - Supraventricular tachycardia Status: Acute Assessment and Plan: Patient noted to have atrial flutter with heart rate up to 130s. This was likely exacerbated by anemia and surgical procedure. Electrolytes are stable. He is now in sinus rhythm and rate is controlled. Echo unremarkable. Appreciate cardiology consultation Continue metoprolol titrate 25 mg p.o. q.6 per cardiology recommendations. No anticoagulation will be initiated in light of anemia and hematuria. (7) Diabetes: Code(s): E11.9 - Type 2 diabetes mellitus without complications Status: Chronic Assessment and Plan: A1c is 6.8. It appears the patient is not on any hypoglycemic agents. Blood sugar
[2020-08-21 18:40] LABS: Glucose Point of Care 113 (65-105)
[2020-08-21 21:08] LABS: Glucose Point of Care 181 (65-105)
[2020-08-21] MEDS: TAMSULOSIN HCL 0.4 MG CAPSULE PO (21:13)
[2020-08-22] VITALS (15 sets, daily range): BP systolic 104–137; BP diastolic 50–85; PULSE 52–74; RESP 12–20; TEMP 36.1–36.4; O2SAT 93–100
[2020-08-22] MEDS: SODIUM CHLORIDE 0.9% IV 1,000 ML 100 ML IV CONT ×3 (01:18→23:16)
[2020-08-22 05:01] LABS: Hematocrit 24.6 % (42.0-52.0); Hemoglobin 7.3 g/dL (14.0-18.0); Mean Corpuscular HGB Conc 29.7 g/dl (32-36); Mean Corpuscular Hemoglobin 24.7 pg (26-34); Mean Corpuscular Volume 83.1 fl (80-100); Mean Platelet Volume 9.9 fl (7.4-10.4); Platelet Count Result 220 k/mm3 (150-375); Red Blood Count 2.96 M/mm3 (4.6-6.20); Red Cell Distribution Width 18.1 % (11.5-14.5); White Blood Count 10.7 K/mm3 (4.5-10.0)
[2020-08-22 05:18] LABS: Alanine Aminotransferase 15 U/L (4-50); Albumin Level 3.2 g/dL (3.5-5.1); Alkaline Phosphatase 95 U/L (38-126); Anion Gap 8 mmol/L (8-16); Aspartate Amino Transferase 36 U/L (17-59); Bilirubin,Total 0.3 mg/dL (0.2-1.3); Blood Urea Nitrogen 45 mg/dL (9-20); Calcium 8.5 mg/dL (8.4-10.2); Carbon Dioxide 21 mmol/L (22-30); Chloride 111 mmol/L (98-107); Estimated CRCL calculation 24 ml/min; Estimated Glomerular Filt Rate 18; Glucose 120 mg/dL (75-110); Phosphorus 3.8 mg/dL (2.5-4.5); Sodium 140 mmol/L (137-145)
--- NOTE | 2020-08-22 08:03 | PM.PNCARD ---
Progress Note: A&P Assessment and Plan (1) Anemia: Code(s): D64.9 - Anemia, unspecified Status: Acute Assessment and Plan: S/P 2 units PRBC and iron. (2) HLD (hyperlipidemia): Code(s): E78.5 - Hyperlipidemia, unspecified Status: Chronic Assessment and Plan: Continue Lovastatin. (3) Atrial tachycardia, paroxysmal: Code(s): I47.1 - Supraventricular tachycardia Status: Acute Assessment and Plan: PAT/flutter. This is likely due to worsened anemia and s/p urologic procedure. Will not start Diltiazem bolus or drip given BP is 119 systolic and HR 128 bpm. On Metoprolol Tartate 25 mg PO BID with parameters. No anticoagulation given hematuria and anemia. Had taoism of sinus rhythm, but had 15 beat run on 08/21/19 at 04:57. Atrial triplet only on 08/22/19. Will sign off. Please call with questions/concerns or change in status. (4) ARF (acute renal failure): Code(s): N17.9 - Acute kidney failure, unspecified Status: Acute Assessment and Plan: Acute on chronic CKD. Subjective Date/time seen: 08/22/20 08:03 Denies chest pain or sob. Exam Const: General: cooperative, healthy appearing and comfortable Resp: Auscultation: clear to auscultation bilaterally, no crackles, no rales, no rhonchi and no wheezes Cardio: Jugular venous distension: no JVD Rate: regular rate Rhythm: regular rhythm Heart sounds: no murmurs Peripheral pulses: dorsalis pedis present GI: GI Palp: No abdominal tenderness and Yes Soft to palpation Urinary Catheter: Urinary Catheter: urine red Neuro: General: oriented to person and oriented to place Extrem: Right lower extremity: no edema Left lower extremity: no edema Objective Data Vital Signs Vital Signs: Vital Signs - 24 hr 08/21/20 09:00 08/21/20 09:10 08/21/20 10:00 Temperature 97.1 F L 99.1 F Pulse Rate 75 74 70 Respiratory Rate 18 20 Blood Pressure 124/59 L 119/63 Pulse Oximetry 99 98 08/21/20 10:19 08/21/20 12:00 08/21/20 14:00 Temperature 97.3 F L Pulse Rate 73 73 66 Respiratory Rate 20 Blood Pressure 134/62 Pulse Oximetry 98 08/21/20 16:00 08/21/20 18:00 08/21/20 18:53 Temperature 98.5 F 97.8 F Pulse Rate 69 67 67 Respiratory Rate 22 H 20 Blood Pressure 136/64 126/67 Pulse Oximetry 96 100 08/21/20 20:00 08/21/20 21:13 08/21/20 22:00 Temperature Pulse Rate 72 72 69 Respiratory Rate 20 Blood Pressure Pulse Oximetry 100 08/22/20 00:00 08/22/20 02:00 08/22/20 04:00 Temperature 97.4 F L 97.5 F L Pulse Rate 60 62 70 Respiratory Rate 20 20 Blood Pressure 116/63 120/50 L Pulse Oximetry 99 100 08/22/20 06:00 Temperature Pulse Rate 63 Respiratory Rate Blood Pressure Pulse Oximetry Intake/Output Intake/Output: Intake & Output 08/19/20 08/20/20 08/21/20 08/22/20 23:59 23:59 23:59 23:59 Intake Total 9727 792 5635 1500 Output Total 475 3300 2600 1350 Balance 1440 -2820 530 150 Meds/Results Medications: Active Medications Generic Name Dose Route Start Last Admin Trade Name Freq PRN Reason Stop Dose Admin Cyanocobalamin 1,000 mcg 08/19/20 15:10 08/21/20 10:19 Cyanocobalamin 1,000 Mcg Tablet PO 1,000 mcg DAILY ROHAN Administration Dextrose 12.5 gm 08/19/20 15:51 Dextrose 50% 25 Gm/50 Ml Syringe IV PUSH PRN PRN Hypoglycemia Protocol Docusate Sodium 100 mg 08/19/20 17:00 08/21/20 17:05 Docusate Sodium 100 Mg Capsule PO 100 mg BID ROHAN Administration Epoetin Rafy-epbx 10,000 units 08/21/20 09:00 08/21/20 15:20 Epoetin Rafy-Epbx 10,000 Units/Ml Vial SUB-Q 10,000 units TuThSa@0900 ROHAN Administration Furosemide 40 mg 08/19/20 15:03 08/19/20 16:56 Furosemide 40 Mg Tablet PO 40 mg PRN PRN Administration SWELLING Glucagon 1 mg 08/19/20 15:51 Glucagon For Inj 1 Mg Vial IM PRN PRN Hypoglycemia Protocol Glucose 15 gm 08/19/20 15:51 Gl
[2020-08-22] MEDS: METOPROLOL TARTRATE 25 MG TABLET PO ×2 (08:35→20:09)
[2020-08-22] MEDS: DOCUSATE SODIUM 100 MG CAPSULE PO ×2 (08:35→18:10)
[2020-08-22] MEDS: IRON SUCROSE COMPLEX 200 MG in SODIUM CHLORIDE 0.9% IV 50 ML 120 MG IVPB (08:35)
[2020-08-22] MEDS: LOVASTATIN 20 MG TABLET 40 MG PO (08:35)
[2020-08-22] MEDS: CYANOCOBALAMIN 1,000 MCG TABLET 1000 MCG PO (08:35)
[2020-08-22] MEDS: traMADol HCL (*CRX) 50 MG TABLET PO ×2 (08:35→18:10)
[2020-08-22] MEDS: EUCERIN CREAM 120 GM JAR 1 APPLIC TOPICAL (08:36)
--- NOTE | 2020-08-22 08:49 | WPDUROPN2 ---
Progress Note: A&P Assessment and Plan (1) UTI (urinary tract infection): Code(s): N39.0 - Urinary tract infection, site not specified Status: Acute Assessment and Plan: Continue IV antibiotics, tailor to culture sensitivity. Urine culture growing Gram negative Bacilli. Urine is clear and draining. (2) BPH (benign prostatic hyperplasia): Code(s): N40.0 - Benign prostatic hyperplasia without lower urinary tract symptoms Status: Chronic Assessment and Plan: Continue Tamsulosin. Will go home with benito catheter x 7 days then remove in the office. No further evaluation needed at this time. Ok to discharge home when stable. (3) Penile lesion: Code(s): N48.9 - Disorder of penis, unspecified Status: Acute Subjective Subjective Date/Time Seen: 08/22/20 08:49 POD #3 TURP, Circumcision, Excision of Penile Lesion Urine is yellow and clear. He seems to be feeling better overall. He does c/o constipation but is getting colace and had a large BM this morning according to his nurse. Urine culture is positive, growing Gram Negative Bacilli, sensitivites not reported at this time, blood cultures pending. Review of Systems Cardiovascular: Cardiovascular: Denies chest pain Respiratory: Respiratory: Reports no additional respiratory complaints Gastrointestinal: Gastrointestinal: Denies abdominal pain, Reports constipation, Denies nausea and Denies vomiting Genitourinary: Genitourinary: Denies hematuria and Reports other (urinary retention) Exam Resp: Effort & Inspection: normal respiratory effort Cardio: Rate: regular rate GI: GI Palp: Yes Soft to palpation and Yes Tenderness to palpation present (GI) : General: Yes no CVA tenderness Penis: Yes circumcised Meatus: Blood at meatus present and No Erythema at meatus Urinary Catheter: Urinary Catheter: patent and draining and urine clear Extrem: General: no edema Objective Data Vital Signs Vital Signs: Vital Signs - 24 hr 08/21/20 09:00 08/21/20 09:10 08/21/20 10:00 Temperature 97.1 F L 99.1 F Pulse Rate 75 74 70 Respiratory Rate 18 20 Blood Pressure 124/59 L 119/63 Pulse Oximetry 99 98 08/21/20 10:19 08/21/20 12:00 08/21/20 14:00 Temperature 97.3 F L Pulse Rate 73 73 66 Respiratory Rate 20 Blood Pressure 134/62 Pulse Oximetry 98 08/21/20 16:00 08/21/20 18:00 08/21/20 18:53 Temperature 98.5 F 97.8 F Pulse Rate 69 67 67 Respiratory Rate 22 H 20 Blood Pressure 136/64 126/67 Pulse Oximetry 96 100 08/21/20 20:00 08/21/20 21:13 08/21/20 22:00 Temperature Pulse Rate 72 72 69 Respiratory Rate 20 Blood Pressure Pulse Oximetry 100 08/22/20 00:00 08/22/20 02:00 08/22/20 04:00 Temperature 97.4 F L 97.5 F L Pulse Rate 60 62 70 Respiratory Rate 20 20 Blood Pressure 116/63 120/50 L Pulse Oximetry 99 100 08/22/20 06:00 08/22/20 08:35 Temperature Pulse Rate 63 61 Respiratory Rate Blood Pressure Pulse Oximetry Intake/Output Intake/Output: Intake & Output 08/19/20 08/20/20 08/21/20 08/22/20 23:59 23:59 23:59 23:59 Intake Total 8530 532 7764 1500 Output Total 475 3300 2600 1350 Balance 1440 -2820 530 150 Meds/Results Medications: Active Medications Generic Name Dose Route Start Last Admin Trade Name Freq PRN Reason Stop Dose Admin Cyanocobalamin 1,000 mcg 08/19/20 15:10 08/22/20 08:35 Cyanocobalamin 1,000 Mcg Tablet PO 1,000 mcg DAILY ROHAN Administration Dextrose 12.5 gm 08/19/20 15:51 Dextrose 50% 25 Gm/50 Ml Syringe IV PUSH PRN PRN Hypoglycemia Protocol Docusate Sodium 100 mg 08/19/20 17:00 08/22/20 08:35 Docusate Sodium 100 Mg Capsule PO 100 mg BID ROHAN Administration Epoetin Rafy-epbx 10,000 units 08/21/20 09:00 08/21/20 15:20 Epoetin Rafy-Epbx 10,000 Units/Ml Vial SUB-Q 10,000 units TuThSa@0900 ROHAN Administration Furosemide 40 mg 08/19/20 15:03 08/19/20 16:56 Furosemide 40 M
[2020-08-22 09:00] LABS: Glucose Point of Care 117 (65-105)
--- NOTE | 2020-08-22 10:39 | PM.PNNEP ---
Progress Note: A&P Assessment and Plan (1) ARF (acute renal failure): Code(s): N17.9 - Acute kidney failure, unspecified Status: Acute Assessment and Plan: The patient has apparent chronic kidney disease. His creatinine was normal in 2018. 2.3 in January of 2020. And now the creatinine is up to 4.7. Renal ultrasound shows no obstruction. Urine electrolytes are non pre renal He does have lots of protein in the urine. However he also has a bladder infection. The chronic kidney disease could be from hypertension and diabetes. However the progression is a bit too fast. He has an infection right now which could be playing a role in his high creatinine or he could have some sort of a glomerulonephritis. We can't really do a biopsy now because of the current infection. So will get serology and immunofixation see what this shows. This could all be acute kidney injury as well. Perhaps he had some obstruction before hand which was relieved by urologic procedures and it might be taking a while to recover from this. His creatinine has improved today significantly. Will continue IV fluids and continue antibiotics. (2) Kidney stone: Code(s): N20.0 - Calculus of kidney Status: Acute Assessment and Plan: The patient has had kidney stones. CT abdomen showed bilateral nephrolithiasis with moderate hydronephrosis on both side. This was day before yesterday. KUB showed bilateral nephrolithiasis. So we can follow KUBs going forward. Will wait until outpatient to do 24hour urines for stone analysis says he just had instrumentation done. Uric acid is very high. Will start allopurinol today. PTH is okay. I encouraged him to drink plenty of fluid and avoid salty foods. (3) Irregular heart beat: Code(s): I49.9 - Cardiac arrhythmia, unspecified Status: Acute Assessment and Plan: Rate control is good (4) Diabetes: Code(s): E11.9 - Type 2 diabetes mellitus without complications Status: Chronic Assessment and Plan: on Accu-Cheks and sliding-scale insulin (5) BPH (benign prostatic hyperplasia): Code(s): N40.0 - Benign prostatic hyperplasia without lower urinary tract symptoms Status: Chronic Assessment and Plan: sees Urology Subjective Date/time seen: 08/22/20 10:39 Interval history: Patient is alert. Resting comfortably in bed. No shortness of breath Review of Systems Constitutional: Constitutional: Reports no additional constitutional complaints Eyes: Eyes: Reports no additional eye complaints ENT: Reports system reviewed and no additional complaints, except as documented Cardiovascular: Cardiovascular: Reports no additional cardiovascular complaints Respiratory: Respiratory: Reports no additional respiratory complaints Gastrointestinal: Gastrointestinal: Reports no additional gastrointestinal complaints Genitourinary: Genitourinary: Reports no additional male genitourinary complaints Musculoskeletal: Musculoskeletal: Reports no additional musculoskeletal complaints Integumentary/Breasts: Skin/Breast: Reports system reviewed and no additional complaints, except as docu Neurologic: Reports system reviewed and no additional complaints, except as documented Psychiatric: Psychiatric: Reports no additional psychiatric complaints Endocrine: Endocrine: Reports no additional endocrine complaints Exam Narrative: Exam Narrative: WDWN in NAD skin no rash head ncat lungs clear cor reg no rub abd BS+ nontender and soft ext no edema. Objective Data Vital Signs Vital Signs: Vital Signs - 24 hr 08/21/20 12:00 08/21/20 14:00 08/21/20 16:00 Temperature 36.3 C L 36.9 C Pulse Rate 73 66 69 Respiratory Rate 20 22 H Blood Pressure 134/62 136/64 Pulse Oximetry 98 96 08/21/20 18:00 08/21/20 18:53 08/21/20 20:00 Temperature 36.6 C Pulse Rate 67 67 72 Respiratory Rate 20 20 Blood
[2020-08-22 12:37] LABS: Hematocrit 26.4 % (42.0-52.0); Hemoglobin 8.1 g/dL (14.0-18.0)
--- NOTE | 2020-08-22 12:41 | PM.IMPN ---
Progress Note: A&P Assessment and Plan (1) Acute on chronic kidney failure: Code(s): N17.9 - Acute kidney failure, unspecified; N18.9 - Chronic kidney disease, unspecified Status: Acute Assessment and Plan: He has a history of CKD and baseline creatinine appears to be about 2.3. Creatinine was 5.0 at presentation. Chronic kidney disease is likely explained by hypertension and diabetes mellitus. Acute injury is less clear, may be secondary to obstructive uropathy from stones, actue UTI, or pre renal secondary to dehydration as poor appetite was noted. Renal ultrasound unremarkable and no hydronephrosis noted. Slow improvement of renal function today Appreciate nephrology consultation Monitor renal function closely and avoid nephrotoxic agents. IV fluid hydration will be continued Serologic tests pending. (2) Kidney stone: Code(s): N20.0 - Calculus of kidney Status: Acute Assessment and Plan: Patient presented with gross hematuria. CT a/p performed 08/18 showed large bilateral nephrolithiasis with mild to moderate hydroureteronephrosis. He underwent bilateral ureteral stent placement on 08/19/[address] Blankenship. He tolerated the procedure well. Repeat renal ultrasound today showed no residual hydronephrosis. Appreciate urology consultation He will likely need definitive stone management at a later date. Continue Wilson catheter at this time per Urology. He will discharge with Wilson catheter x7 days and follow up for in-office removal. (3) UTI (urinary tract infection): Code(s): N39.0 - Urinary tract infection, site not specified Status: Acute Assessment and Plan: Urinalysis grossly abnormal. Urine culture growing Pseudomonas. He has very mild leukocytosis. He is afebrile. Preliminary blood cultures NGTD. Begin IV cefepime 2 g q.12h. He will likely need to be discharged home on IV antibiotics as no suitable oral agents are available. Will need midline catheter placed. Care coordination following. Discontinue IV ceftriaxone, started on 08/20/2020 Continue Wilson catheter as above. (4) Altered mental status: Code(s): R41.82 - Altered mental status, unspecified Status: Acute Assessment and Plan: Patient exhibited confusion in conversation on 08/20 and was A&Ox2, which is not consistent with his baseline. This is most likely secondary to acute UTI. His mental status improved significantly and he is now at baseline. He is now A&Ox4 today and confusion seems to have resolved entirely. Head CT showed no acute findings. Continue treatment with IV antibiotics for urinary tract infection Monitor symptoms closely (5) Anemia: Code(s): D64.9 - Anemia, unspecified Status: Acute Assessment and Plan: Patient noted to be anemic prior to procedure. Hemoglobin at presentation was 6.8. He underwent transfusion of 2 units pRBC on 08/19/2020. This may be an acute on chronic picture. I suspect patient has chronic anemia of chronic disease from kidney failure and may have an acute component from hematuria. H&H improved following transfusion. Iron panel shows mixed picture. B12 and folate within limits. Vital signs are stable and he has no signs or symptoms to suggest active bleeding. Hgb improved this afternoon at 8.1 Monitor H&H closely Continue IV Venofer (6) Atrial tachycardia: Code(s): I47.1 - Supraventricular tachycardia Status: Acute Assessment and Plan: Patient noted to have atrial flutter with heart rate up to 130s. This was likely exacerbated by anemia and surgical procedure. Electrolytes are stable. He is now in sinus rhythm and rate is controlled. Echo unremarkable. Appreciate cardiology consultation Continue metoprolol titrate 25 mg p.o. q.6 per cardiology recommendations. No anticoagulation will be initiated in light of anemia and hematuria. (7) Diabetes: Code(s): E11.
[2020-08-22 13:03] LABS: Glucose Point of Care 186 (65-105)
[2020-08-22] MEDS: allopurinoL 100 MG TABLET PO (13:09)
[2020-08-22 17:00] LABS: Glucose Point of Care 139 (65-105)
--- NOTE | 2020-08-22 18:37 | PC.NURSE ---
This patient, Jovanny Ryder, was received from [facility] on 08/22/20 at 1837. Patient/family oriented to unit policies and routines
--- NOTE | 2020-08-22 18:58 | PC.NURSE ---
This patient, Jovanny Ryder, was transferred to [facility] on 08/22/20 at 1815. Personal belongings sent with patient. Report given to VALENTINA Coleman. Appropriate documentation sent with patient.
[2020-08-22] MEDS: TAMSULOSIN HCL 0.4 MG CAPSULE PO (20:09)
[2020-08-22 20:45] LABS: Glucose Point of Care 157 (65-105)
[2020-08-23] VITALS (17 sets, daily range): BP systolic 109–144; BP diastolic 43–65; PULSE 52–68; RESP 16–20; TEMP 36.2–36.6; O2SAT 92–99
[2020-08-23 06:04] LABS: Hematocrit 22.1 % (42.0-52.0); Mean Corpuscular HGB Conc 29.9 g/dl (32-36); Mean Corpuscular Hemoglobin 24.5 pg (26-34); Mean Corpuscular Volume 82.2 fl (80-100); Platelet Count Result 213 k/mm3 (150-375); Red Blood Count 2.69 M/mm3 (4.6-6.20); Red Cell Distribution Width 18.2 % (11.5-14.5); White Blood Count 9.7 K/mm3 (4.5-10.0)
[2020-08-23 06:07] LABS: Hemoglobin 6.6 g/dL (14.0-18.0)
[2020-08-23 06:29] LABS: Alanine Aminotransferase 16 U/L (4-50); Albumin Level 2.9 g/dL (3.5-5.1); Alkaline Phosphatase 87 U/L (38-126); Anion Gap 7 mmol/L (8-16); Aspartate Amino Transferase 26 U/L (17-59); Bilirubin,Total 0.3 mg/dL (0.2-1.3); Blood Urea Nitrogen 38 mg/dL (9-20); Calcium 8.1 mg/dL (8.4-10.2); Carbon Dioxide 20 mmol/L (22-30); Chloride 111 mmol/L (98-107); Estimated CRCL calculation 26 ml/min; Estimated Glomerular Filt Rate 20; Glucose 119 mg/dL (75-110); Phosphorus 3.6 mg/dL (2.5-4.5); Potassium 3.9 mmol/L (3.4-5.0); Sodium 138 mmol/L (137-145)
[2020-08-23] MEDS: DOCUSATE SODIUM 100 MG CAPSULE PO ×2 (07:57→17:18)
[2020-08-23] MEDS: LOVASTATIN 20 MG TABLET 40 MG PO (07:57)
[2020-08-23] MEDS: traMADol HCL (*CRX) 50 MG TABLET PO ×2 (07:58→17:18)
[2020-08-23] MEDS: allopurinoL 100 MG TABLET PO (07:59)
[2020-08-23] MEDS: METOPROLOL TARTRATE 25 MG TABLET PO ×2 (07:59→20:15)
[2020-08-23] MEDS: CYANOCOBALAMIN 1,000 MCG TABLET 1000 MCG PO (07:59)
[2020-08-23] MEDS: EPOETIN ALFA-EPBX 10,000 UNITS/ML VIAL 10000 UNITS SUB-Q (07:59)
[2020-08-23] MEDS: EUCERIN CREAM 120 GM JAR 1 APPLIC TOPICAL (08:00)
[2020-08-23 08:41] LABS: IFOB Positive Control Positive; Immunochemical Fecal Occult Bl Negative (N)
--- NOTE | 2020-08-23 08:59 | PM.PNNEP ---
Progress Note: A&P Assessment and Plan (1) ARF (acute renal failure): Code(s): N17.9 - Acute kidney failure, unspecified Status: Acute Assessment and Plan: The patient has apparent chronic kidney disease. His creatinine was normal in 2019. 2.3 in January of 2020. And now the creatinine is up to 4.7. Renal ultrasound shows no obstruction. Urine electrolytes are non pre renal He does have lots of protein in the urine. However he also has a bladder infection. The chronic kidney disease could be from hypertension and diabetes. Checking other causes as well. Labs are pending. Creatinine is improving. He is getting IV fluids. He is eating well now so I think we can reduce the rate of these. Continueing antibiotics. (2) Kidney stone: Code(s): N20.0 - Calculus of kidney Status: Acute Assessment and Plan: The patient has had kidney stones. CT abdomen showed bilateral nephrolithiasis with moderate hydronephrosis on both side. This was day before yesterday. KUB showed bilateral nephrolithiasis. So we can follow KUBs going forward. Uric acid is very high. On allopurinol. PTH is okay. I encouraged him to drink plenty of fluid and avoid salty foods. (3) Irregular heart beat: Code(s): I49.9 - Cardiac arrhythmia, unspecified Status: Acute Assessment and Plan: Rate control is good (4) Diabetes: Code(s): E11.9 - Type 2 diabetes mellitus without complications Status: Chronic Assessment and Plan: on Accu-Cheks and sliding-scale insulin (5) BPH (benign prostatic hyperplasia): Code(s): N40.0 - Benign prostatic hyperplasia without lower urinary tract symptoms Status: Chronic Assessment and Plan: sees Urology Subjective Date/time seen: 08/23/20 08:59 Interval history: Patient is alert. Resting comfortably in bed. No shortness of breath Ate a good breakfast. Review of Systems Cardiovascular: Cardiovascular: Reports no additional cardiovascular complaints Respiratory: Respiratory: Reports no additional respiratory complaints Gastrointestinal: Gastrointestinal: Reports no additional gastrointestinal complaints Genitourinary: Genitourinary: Reports no additional male genitourinary complaints Exam Narrative: Exam Narrative: WDWN in NAD skin no rash head ncat lungs clear cor reg no rub abd BS+ nontender and soft ext chronic venous stasis dermatitis on lower extremities. He has trace edema. Objective Data Vital Signs Vital Signs: Vital Signs - 24 hr 08/22/20 10:00 08/22/20 12:00 08/22/20 14:00 Temperature 36.2 C L Pulse Rate 61 52 L 66 Respiratory Rate 20 Blood Pressure 125/62 Pulse Oximetry 93 08/22/20 16:00 08/22/20 18:00 08/22/20 18:36 Temperature 36.2 C L 36.4 C Pulse Rate 60 67 65 Respiratory Rate 12 18 Blood Pressure 108/50 L 137/58 L Pulse Oximetry 94 100 08/22/20 20:00 08/22/20 20:09 08/22/20 21:56 Temperature 36.1 C L Pulse Rate 55 L 65 55 L Respiratory Rate 20 Blood Pressure 104/85 Pulse Oximetry 100 08/23/20 00:00 08/23/20 02:00 08/23/20 04:00 Temperature 36.2 C L Pulse Rate 53 L 58 L 56 L Respiratory Rate 18 Blood Pressure 115/57 L Pulse Oximetry 99 08/23/20 05:59 Temperature 36.4 C Pulse Rate 68 Respiratory Rate 20 Blood Pressure 109/52 L Pulse Oximetry 94 Intake/Output Intake/Output: Intake & Output 08/20/20 08/21/20 08/22/20 08/23/20 23:59 23:59 23:59 23:59 Intake Total 480 3130 5520 500 Output Total 3300 2600 2250 800 Balance -2820 530 3270 -300 Meds/Results Medications: Active Medications Generic Name Dose Route Start Last Admin Trade Name Freq PRN Reason Stop Dose Admin Allopurinol 100 mg 08/22/20 08:00 08/23/20 07:59 Allopurinol 100 Mg Tablet PO 100 mg DAILY@0800 [facility] Administration Cyanocobalamin 1,000 mcg 08/19/20 15:10 08/23/20 07:59 Cyanocobalamin 1,000 Mc
[2020-08-23] MEDS: SODIUM BICARBONATE TAB 650 MG TABLET 1300 MG PO ×2 (09:26→17:18)
[2020-08-23 11:02] LABS: Kappa\\Lambda Light Chains 1.28 (0.26-1.65)
--- NOTE | 2020-08-23 11:25 | PCPTNOTE ---
Attempted therapy session, Pt refused. Pt stated I just did therapy! Explained to Pt he had OT and now PT was there to get him up, moving, walking, and strengthening his legs. Pt understood however continued to refuse due to lunch coming in while therapist was explaining the importance of physical therapy.
[2020-08-23 11:32] LABS: Glucose Point of Care 134 (65-105)
[2020-08-23] MEDS: SODIUM CHLORIDE 0.9% IV 1,000 ML 100 ML IV CONT (12:39)
[2020-08-23] MEDS: IRON SUCROSE COMPLEX 200 MG in SODIUM CHLORIDE 0.9% IV 50 ML 120 MG IVPB (12:39)
--- NOTE | 2020-08-23 14:14 | PM.IMPN ---
Progress Note: A&P Assessment and Plan (1) Acute on chronic kidney failure: Code(s): N17.9 - Acute kidney failure, unspecified; N18.9 - Chronic kidney disease, unspecified Status: Acute Assessment and Plan: He has a history of CKD and baseline creatinine appears to be about 2.3. Creatinine was 5.0 at presentation. Chronic kidney disease is likely explained by hypertension and diabetes mellitus. Acute injury is less clear, may be secondary to obstructive uropathy from stones, actue UTI, or pre renal secondary to dehydration as poor appetite was noted. Renal ultrasound unremarkable and no hydronephrosis noted. Continued improvement with creatinine 3.1 today. Appreciate nephrology consultation Monitor renal function closely and avoid nephrotoxic agents. IV fluid hydration will be continued at decreased rate of 50 ml/hr per nephrology Serologic tests pending. (2) Kidney stone: Code(s): N20.0 - Calculus of kidney Status: Acute Assessment and Plan: Patient presented with gross hematuria. CT a/p performed 08/18 showed large bilateral nephrolithiasis with mild to moderate hydroureteronephrosis. He underwent bilateral ureteral stent placement on 08/19/[address] Blankenship. He tolerated the procedure well. Repeat renal ultrasound showed no residual hydronephrosis. Appreciate urology consultation He will likely need definitive stone management at a later date. Continue Wilson catheter at this time per Urology. He will discharge with Wilson catheter x7 days and follow up for in-office removal. (3) UTI (urinary tract infection): Code(s): N39.0 - Urinary tract infection, site not specified Status: Acute Assessment and Plan: Urinalysis grossly abnormal. Urine culture growing Pseudomonas. Leukocytosis resolved. He is afebrile. Preliminary blood cultures NGTD. Continue IV cefepime 2 g daily. Started on 08/22/20. He will likely need to be discharged home on IV antibiotics as no suitable oral agents are available. Will need midline catheter placed. Care coordination following. Had been on Rocephin which was discontinued 08/22 after susceptibility reports. Continue Wilson catheter as above. (4) Altered mental status: Code(s): R41.82 - Altered mental status, unspecified Status: Acute Assessment and Plan: Patient exhibited confusion in conversation on 08/20 and was A&Ox2, which is not consistent with his baseline. This is most likely secondary to acute UTI. His mental status improved significantly and he is now at baseline. He is now A&Ox4 and confusion has resolved entirely. Head CT showed no acute findings. Continue treatment with IV antibiotics for urinary tract infection Monitor symptoms closely (5) Anemia: Code(s): D64.9 - Anemia, unspecified Status: Acute Assessment and Plan: Patient noted to be anemic prior to procedure. Hemoglobin at presentation was 6.8. He underwent transfusion of 2 units pRBC on 08/19/2020. This may be an acute on chronic picture. I suspect patient has chronic anemia of chronic disease from kidney failure and may have an acute component from hematuria. IFOB negative. H&H improved following transfusion. Iron panel shows mixed picture. B12 and folate within limits. Vital signs are stable and he has no signs or symptoms to suggest active bleeding. Hgb 6.6 this morning and he is undergoing transfusion 1 unit pRBC. Monitor H&H closely. Repeat H&H 1 hour following transfusion Continue IV Venofer (6) Atrial tachycardia: Code(s): I47.1 - Supraventricular tachycardia Status: Acute Assessment and Plan: Patient noted to have atrial flutter with heart rate up to 130s. This was likely exacerbated by anemia and surgical procedure. Electrolytes are stable. He is now in sinus rhythm and rate is controlled. Echo unremarkable. Seen in consultation by cardiology who has now signed off as h
--- NOTE | 2020-08-23 14:22 | PCPTNOTE ---
Attempted therapy session, Pt refused therapy. He stated I'm too damn old to be taking orders from 'kids'. Plus the football game is on. In fact you should hang a note on my door that says 'Do Not Disturb' while football games are on. Explained to the patient the importance of therapy, of getting up out of bed, and moving around to ensure we aren't loosing strength. Pt said Yeah maybe when the games not on.
[2020-08-23 14:49] LABS: Hematocrit 26.3 % (42.0-52.0); Hemoglobin 8.1 g/dL (14.0-18.0)
[2020-08-23 18:08] LABS: Glucose Point of Care 172 (65-105)
[2020-08-23] MEDS: TAMSULOSIN HCL 0.4 MG CAPSULE PO (20:15)
[2020-08-23 21:37] LABS: Glucose Point of Care 220 (65-105)
[2020-08-24] VITALS (12 sets, daily range): BP systolic 129–149; BP diastolic 53–74; PULSE 45–86; RESP 18–20; TEMP 36.3–36.8; O2SAT 93–99
[2020-08-24 06:00] LABS: Hematocrit 26.5 % (42.0-52.0); Hemoglobin 7.9 g/dL (14.0-18.0); Mean Corpuscular HGB Conc 29.8 g/dl (32-36); Mean Corpuscular Hemoglobin 25.2 pg (26-34); Mean Corpuscular Volume 84.7 fl (80-100); Mean Platelet Volume 9.9 fl (7.4-10.4); Platelet Count Result 206 k/mm3 (150-375); Red Blood Count 3.13 M/mm3 (4.6-6.20); Red Cell Distribution Width 18.2 % (11.5-14.5); White Blood Count 11.4 K/mm3 (4.5-10.0)
[2020-08-24 06:24] LABS: Albumin Level 3.1 g/dL (3.5-5.1); Anion Gap 8 mmol/L (8-16); Blood Urea Nitrogen 36 mg/dL (9-20); Calcium 8.1 mg/dL (8.4-10.2); Carbon Dioxide 23 mmol/L (22-30); Chloride 109 mmol/L (98-107); Estimated CRCL calculation 26 ml/min; Estimated Glomerular Filt Rate 20; Glucose 135 mg/dL (75-110); Phosphorus 3.2 mg/dL (2.5-4.5); Potassium 3.9 mmol/L (3.4-5.0); Sodium 140 mmol/L (137-145)
[2020-08-24] MEDS: IRON SUCROSE COMPLEX 200 MG in SODIUM CHLORIDE 0.9% IV 50 ML 120 MG IVPB (08:29)
[2020-08-24] MEDS: LOVASTATIN 20 MG TABLET 40 MG PO (08:29)
[2020-08-24] MEDS: SODIUM BICARBONATE TAB 650 MG TABLET 1300 MG PO ×2 (08:30→18:19)
[2020-08-24] MEDS: allopurinoL 100 MG TABLET PO (08:30)
[2020-08-24] MEDS: CYANOCOBALAMIN 1,000 MCG TABLET 1000 MCG PO (08:30)
[2020-08-24] MEDS: METOPROLOL TARTRATE 25 MG TABLET PO (08:30)
--- NOTE | 2020-08-24 08:30 | PM.PNNEP ---
Progress Note: A&P Assessment and Plan (1) ARF (acute renal failure): Code(s): N17.9 - Acute kidney failure, unspecified Status: Acute Assessment and Plan: The patient has apparent chronic kidney disease. His creatinine was normal in 2018. 2.3 in January of 2020. And now the creatinine is up to 4.7. Renal ultrasound shows no obstruction. Urine electrolytes are non pre renal He does have lots of protein in the urine. However he also has a bladder infection. The chronic kidney disease could be from hypertension and diabetes. Checking other causes as well. Serology and immunofixation are pending Creatinine is about the same today as it was yesterday at 3.1. He is getting IV fluids. He is eating well now so will stop IV fluids. Continuing antibiotics. (2) Kidney stone: Code(s): N20.0 - Calculus of kidney Status: Acute Assessment and Plan: The patient has had kidney stones. CT abdomen showed bilateral nephrolithiasis with moderate hydronephrosis on both side. This was day before yesterday. KUB showed bilateral nephrolithiasis. So we can follow KUBs going forward. Uric acid is very high. On allopurinol. PTH is okay. I encouraged him to drink plenty of fluid and avoid salty foods. (3) Irregular heart beat: Code(s): I49.9 - Cardiac arrhythmia, unspecified Status: Acute Assessment and Plan: Pulse rate is now bit low. (4) Diabetes: Code(s): E11.9 - Type 2 diabetes mellitus without complications Status: Chronic Assessment and Plan: on Accu-Cheks and sliding-scale insulin (5) BPH (benign prostatic hyperplasia): Code(s): N40.0 - Benign prostatic hyperplasia without lower urinary tract symptoms Status: Chronic Assessment and Plan: sees Urology Subjective Date/time seen: 08/24/20 08:30 Interval history: Patient is alert. Resting comfortably in bed. Eating okay. Bowels okay Review of Systems Cardiovascular: Cardiovascular: Reports no additional cardiovascular complaints Respiratory: Respiratory: Reports no additional respiratory complaints Gastrointestinal: Gastrointestinal: Reports no additional gastrointestinal complaints Genitourinary: Genitourinary: Reports no additional male genitourinary complaints Exam Narrative: Exam Narrative: WDWN in NAD skin no rash or subcu nodules head ncat lungs clear cor reg no rub or gallop abd BS+ nontender and soft ext chronic venous stasis dermatitis on lower extremities. He has trace edema. Objective Data Vital Signs Vital Signs: Vital Signs - 24 hr 08/23/20 09:07 08/23/20 09:26 08/23/20 10:26 Temperature 36.5 C 36.4 C L 36.4 C L Pulse Rate 58 L 54 L 52 L Respiratory Rate 18 16 16 Blood Pressure 114/43 L 120/53 L 115/51 L Pulse Oximetry 92 99 99 08/23/20 11:26 08/23/20 12:00 08/23/20 12:20 Temperature 36.4 C L 36.4 C Pulse Rate 60 63 62 Respiratory Rate 16 16 Blood Pressure 123/60 144/55 H Pulse Oximetry 99 98 08/23/20 14:00 08/23/20 15:31 08/23/20 16:00 Temperature 36.4 C L Pulse Rate 57 L 55 L Respiratory Rate 16 Blood Pressure 113/52 L Pulse Oximetry 95 93 08/23/20 18:00 08/23/20 20:00 08/23/20 20:15 Temperature 36.4 C L 36.6 C Pulse Rate 61 55 L 61 Respiratory Rate 18 20 Blood Pressure 144/65 H 132/63 Pulse Oximetry 99 96 08/24/20 00:00 08/24/20 04:00 Temperature 36.3 C L Pulse Rate 48 L 45 L Respiratory Rate 20 Blood Pressure 129/74 Pulse Oximetry 98 Intake/Output Intake/Output: Intake & Output 08/21/20 08/22/20 08/23/20 08/24/20 23:59 23:59 23:59 23:59 Intake Total 3130 5520 3568 500 Output Total 2600 2250 2200 2000 Balance 530 3270 1368 -1500 Meds/Results Medications: Active Medications Generic Name Dose Route Start Last Admin Trade Name Freq PRN Reason Stop Dose Admin Allopurinol 100 mg 08/22/20 08:00 08/23/20 07:59 Allopurinol 100 Mg Table
[2020-08-24] MEDS: EUCERIN CREAM 120 GM JAR 1 APPLIC TOPICAL (08:31)
[2020-08-24] MEDS: DOCUSATE SODIUM 100 MG CAPSULE PO ×2 (08:36→18:22)
[2020-08-24] MEDS: traMADol HCL (*CRX) 50 MG TABLET PO (08:36)
--- NOTE | 2020-08-24 10:48 | PM.IMPN ---
Progress Note: A&P Assessment and Plan (1) Acute on chronic kidney failure: Code(s): N17.9 - Acute kidney failure, unspecified; N18.9 - Chronic kidney disease, unspecified Status: Acute Assessment and Plan: He has a history of CKD and baseline creatinine appears to be about 2.3. Creatinine was 5.0 at presentation. Chronic kidney disease is likely explained by hypertension and diabetes mellitus. Acute injury is less clear, may be secondary to obstructive uropathy from stones, acute UTI, or pre renal secondary to dehydration as poor appetite was noted. Renal ultrasound unremarkable and no hydronephrosis noted. Continued improvement with creatinine 1.3 today. Appreciate nephrology consultation Monitor renal function closely and avoid nephrotoxic agents. IV fluid hydration will be continued at decreased rate of 50 ml/hr per nephrology Serologic tests pending. (2) Kidney stone: Code(s): N20.0 - Calculus of kidney Status: Acute Assessment and Plan: Patient presented with gross hematuria. CT a/p performed 08/18 showed large bilateral nephrolithiasis with mild to moderate hydroureteronephrosis. He underwent bilateral ureteral stent placement on 08/19/[address] Blankenship. He tolerated the procedure well. Repeat renal ultrasound showed no residual hydronephrosis. Appreciate urology consultation He will likely need definitive stone management at a later date. Continue Wilson catheter at this time per Urology. He will discharge with Wilson catheter x7 days and follow up for in-office removal. Increased hematuria noted today. He should be re-evaluated by Urology tomorrow. (3) UTI (urinary tract infection): Code(s): N39.0 - Urinary tract infection, site not specified Status: Acute Assessment and Plan: Urinalysis grossly abnormal. Urine culture growing Pseudomonas. Slight increase in leukocytosis today. He remains afebrile. Preliminary blood cultures NGTD. hematuria noted today. Continue IV cefepime 2 g daily. Started on 08/22/20. He will likely need to be discharged home on IV antibiotics as no suitable oral agents are available. Will need midline catheter placed, hopefully this can be accomplished tomorrow. Care coordination following. Had been on Rocephin which was discontinued 08/22 after susceptibility reports. Continue Wilson catheter as above. (4) Altered mental status: Code(s): R41.82 - Altered mental status, unspecified Status: Acute Assessment and Plan: Patient exhibited confusion in conversation on 08/20 and was A&Ox2, which is not consistent with his baseline. This is most likely secondary to acute UTI. His mental status improved significantly and he is now at baseline. He is now A&Ox4 and confusion has resolved entirely. Head CT showed no acute findings. Continue treatment with IV antibiotics for urinary tract infection Monitor symptoms closely (5) Anemia: Code(s): D64.9 - Anemia, unspecified Status: Acute Assessment and Plan: Patient noted to be anemic prior to procedure. Hemoglobin at presentation was 6.8. He underwent transfusion of 2 units pRBC on 08/19/2020. This may be an acute on chronic picture. I suspect patient has anemia of chronic disease from kidney failure and may have an acute component from hematuria. IFOB negative. H&H improved following transfusion. Iron panel shows mixed picture. B12 and folate within limits. Vital signs are stable and he has no signs or symptoms to suggest active bleeding. Hgb declined again to 6.6 on 08/23 and he had another transfusion 1 unit pRBC. H&H stable today. Monitor H&H closely and transfuse as needed with hemoglobin threshold less than 7 Continue IV Venofer (6) Atrial tachycardia: Code(s): I47.1 - Supraventricular tachycardia Status: Acute Assessment and Plan: Patient noted to have atrial flutter with heart rate up to 130s. This was likely
[2020-08-24 11:47] LABS: Glucose Point of Care 188 (65-105)
[2020-08-24] MEDS: SODIUM CHLORIDE 0.9% IV 1,000 ML 100 ML IV CONT (12:40)
[2020-08-24 18:23] LABS: Glucose Point of Care 111 (65-105)
[2020-08-24] MEDS: TAMSULOSIN HCL 0.4 MG CAPSULE PO (20:52)
--- NOTE | 2020-08-24 21:03 | PC.NURSE ---
informed Hiliary PA of heart rate in 50's, holding metaprolol
[2020-08-24 21:44] LABS: Glucose Point of Care 153 (65-105)
[2020-08-25] VITALS (15 sets, daily range): BP systolic 119–146; BP diastolic 52–68; PULSE 52–82; RESP 16–20; TEMP 36.3–36.9; O2SAT 98–100
[2020-08-25] MEDS: SODIUM CHLORIDE 0.9% IV 1,000 ML 100 ML IV CONT (04:49)
[2020-08-25 05:50] LABS: Hematocrit 25.9 % (42.0-52.0); Hemoglobin 7.9 g/dL (14.0-18.0); Mean Corpuscular HGB Conc 30.5 g/dl (32-36); Mean Corpuscular Hemoglobin 25.6 pg (26-34); Mean Corpuscular Volume 84.1 fl (80-100); Platelet Count Result 224 k/mm3 (150-375); Red Blood Count 3.08 M/mm3 (4.6-6.20); Red Cell Distribution Width 18.2 % (11.5-14.5); White Blood Count 11.1 K/mm3 (4.5-10.0)
[2020-08-25 06:17] LABS: Anion Gap 5 mmol/L (8-16); Blood Urea Nitrogen 30 mg/dL (9-20); Calcium 8.2 mg/dL (8.4-10.2); Carbon Dioxide 24 mmol/L (22-30); Chloride 111 mmol/L (98-107); Estimated CRCL calculation 27 ml/min; Estimated Glomerular Filt Rate 20; Glucose 135 mg/dL (75-110); Potassium 3.8 mmol/L (3.4-5.0); Sodium 140 mmol/L (137-145)
[2020-08-25 07:29] LABS: Glucose Point of Care 137 (65-105)
--- NOTE | 2020-08-25 07:53 | PM.PNCARD ---
Progress Note: A&P Assessment and Plan (1) Anemia: Code(s): D64.9 - Anemia, unspecified Status: Acute Assessment and Plan: S/P 2 PRBC transfusions and iron. (2) HLD (hyperlipidemia): Code(s): E78.5 - Hyperlipidemia, unspecified Status: Chronic Assessment and Plan: Continue Lovastatin. (3) Atrial tachycardia, paroxysmal: Code(s): I47.1 - Supraventricular tachycardia Status: Acute Assessment and Plan: PAT/flutter. This is likely due to worsened anemia and s/p urologic procedure. Will not start Diltiazem bolus or drip given BP is 119 systolic and HR 128 bpm. On Metoprolol Tartate 25 mg PO BID with parameters. No anticoagulation given hematuria and anemia. Had christian of sinus rhythm, but had 15 beat run on 08/21/19 at 04:57. Atrial triplet only on 08/22/19. Has sinus bradycardia down to 44 bpm on monitor. This is OK when occurs while sleeping. Will decrease Metoprolol Tartate 12.5 mg BID to allow for higher heart rate. (4) ARF (acute renal failure): Code(s): N17.9 - Acute kidney failure, unspecified Status: Acute Assessment and Plan: Acute on chronic CKD. Subjective Date/time seen: 08/25/20 07:53 Denies chest pain or sob or palpitations. Exam Const: General: cooperative, healthy appearing and comfortable Resp: Auscultation: clear to auscultation bilaterally, no crackles, no rales, no rhonchi and no wheezes Cardio: Jugular venous distension: no JVD Rate: regular rate Rhythm: regular rhythm Heart sounds: no murmurs Peripheral pulses: dorsalis pedis present GI: GI Palp: No abdominal tenderness and Yes Soft to palpation Urinary Catheter: Urinary Catheter: urine red Neuro: General: oriented to person and oriented to place Extrem: Right lower extremity: no edema Left lower extremity: no edema Objective Data Vital Signs Vital Signs: Vital Signs - 24 hr 08/24/20 08:00 08/24/20 09:57 08/24/20 10:00 Temperature 97.5 F L Pulse Rate 62 86 Respiratory Rate 18 Blood Pressure 129/69 Pulse Oximetry 98 98 08/24/20 12:00 08/24/20 14:00 08/24/20 16:00 Temperature 97.3 F L Pulse Rate 59 L 60 51 L Respiratory Rate 18 Blood Pressure 143/53 H Pulse Oximetry 93 08/24/20 18:00 08/24/20 20:00 08/24/20 20:59 Temperature 97.5 F L Pulse Rate 67 61 56 L Respiratory Rate 18 Blood Pressure 149/56 H Pulse Oximetry 99 08/24/20 21:43 08/25/20 00:00 08/25/20 02:00 Temperature 98.3 F 98.4 F Pulse Rate 66 63 82 Respiratory Rate 18 18 Blood Pressure 136/60 138/68 Pulse Oximetry 98 98 08/25/20 04:00 08/25/20 06:00 Temperature 97.4 F L Pulse Rate 57 L 59 L Respiratory Rate 18 Blood Pressure 119/52 L Pulse Oximetry 99 Intake/Output Intake/Output: Intake & Output 08/22/20 08/23/20 08/24/20 08/25/20 23:59 23:59 23:59 23:59 Intake Total 5520 4568 3270 300 Output Total 2250 2200 3800 1900 Balance 3270 2368 -530 -1600 Meds/Results Medications: Active Medications Generic Name Dose Route Start Last Admin Trade Name Freq PRN Reason Stop Dose Admin Allopurinol 100 mg 08/22/20 08:00 08/24/20 08:30 Allopurinol 100 Mg Tablet PO 100 mg DAILY@0800 ROHAN Administration Cyanocobalamin 1,000 mcg 08/19/20 15:10 08/24/20 08:30 Cyanocobalamin 1,000 Mcg Tablet PO 1,000 mcg DAILY ROHAN Administration Dextrose 12.5 gm 08/19/20 15:51 Dextrose 50% 25 Gm/50 Ml Syringe IV PUSH PRN PRN Hypoglycemia Protocol Docusate Sodium 100 mg 08/19/20 17:00 08/24/20 18:22 Docusate Sodium 100 Mg Capsule PO 100 mg BID ROHAN Administration Epoetin Rafy-epbx 10,000 units 08/21/20 09:00 08/23/20 07:59 Epoetin Rafy-Epbx 10,000 Units/Ml Vial SUB-Q 10,000 units TuThSa@0900 ROHAN Administration Glucagon 1 mg 08/19/20 15:51 Glucagon For Inj 1 Mg Vial IM PRN PRN Hypoglycemia Protocol Glucose 15 gm 08/19/20 15:51 Glucose Oral Gel 15
[2020-08-25] MEDS: CYANOCOBALAMIN 1,000 MCG TABLET 1000 MCG PO (08:25)
[2020-08-25] MEDS: allopurinoL 100 MG TABLET PO (08:25)
[2020-08-25] MEDS: SODIUM BICARBONATE TAB 650 MG TABLET 1300 MG PO ×2 (08:26→16:27)
[2020-08-25] MEDS: LOVASTATIN 20 MG TABLET 40 MG PO (08:26)
[2020-08-25] MEDS: METOPROLOL TARTRATE 12.5 MG TABLET PO (08:26)
[2020-08-25] MEDS: IRON SUCROSE COMPLEX 200 MG in SODIUM CHLORIDE 0.9% IV 50 ML 120 MG IVPB (10:05)
[2020-08-25 11:52] LABS: Glucose Point of Care 181 (65-105)
--- NOTE | 2020-08-25 16:14 | PM.IMPN ---
Progress Note: A&P Assessment and Plan (1) Acute on chronic kidney failure: Code(s): N17.9 - Acute kidney failure, unspecified; N18.9 - Chronic kidney disease, unspecified Status: Acute Assessment and Plan: He has a history of CKD and baseline creatinine appears to be about 2.3. Creatinine was 5.0 at presentation. Chronic kidney disease is likely explained by hypertension and diabetes mellitus. Acute injury is less clear, may be secondary to obstructive uropathy from stones, acute UTI, or pre renal secondary to dehydration as poor appetite was noted. Renal ultrasound unremarkable and no hydronephrosis noted. Cr 3.0 today Appreciate nephrology consultation Monitor renal function closely and avoid nephrotoxic agents. Will discontinue IV fluids as patient is tolerating PO intake. He can follow up with nephrology as an outpatient. Will need repeat labs in 1 week. (2) Kidney stone: Code(s): N20.0 - Calculus of kidney Status: Acute Assessment and Plan: Patient presented with gross hematuria. CT a/p performed 08/18 showed large bilateral nephrolithiasis with mild to moderate hydroureteronephrosis. He underwent bilateral ureteral stent placement on 08/19/[address] Blankenship. He tolerated the procedure well. Repeat renal ultrasound showed no residual hydronephrosis. Appreciate urology consultation. He will need definitive stone management at a later date. Continue Wilson catheter at this time per Urology. He will discharge with Wilson catheter x7 days and follow up for in-office removal. (3) UTI (urinary tract infection): Code(s): N39.0 - Urinary tract infection, site not specified Status: Acute Assessment and Plan: Urinalysis grossly abnormal. Urine culture grew Pseudomonas. He remains afebrile. Mild leukocytosis. Preliminary blood cultures NGTD. Continue IV cefepime 2 g daily. Started on 08/22/20. Plan to complete 7 days of antibiotic therapy. He will need to discharge on IV antibiotics as there are no suitable oral agents available. Will order midline catheter. Hopeful discharge tomorrow. Had been on Rocephin which was discontinued 08/22 after susceptibility reports. Continue Wilson catheter as above. (4) Altered mental status: Code(s): R41.82 - Altered mental status, unspecified Status: Acute Assessment and Plan: Patient exhibited confusion in conversation on 08/20 and was A&Ox2, which is not consistent with his baseline. This is most likely secondary to acute UTI. His mental status improved significantly and he is now at baseline. He is now A&Ox4 and confusion has resolved entirely. Head CT showed no acute findings. Continue treatment with IV antibiotics for urinary tract infection Monitor symptoms closely (5) Anemia: Code(s): D64.9 - Anemia, unspecified Status: Acute Assessment and Plan: Patient noted to be anemic prior to procedure. Hemoglobin at presentation was 6.8. He underwent transfusion of 2 units pRBC on 08/19/2020. This may be an acute on chronic picture. I suspect patient has anemia of chronic disease from kidney failure and may have an acute component from hematuria. IFOB negative. H&H improved following transfusion. Iron panel shows mixed picture. B12 and folate within limits. Vital signs are stable and he has no signs or symptoms to suggest active bleeding. Hgb declined again to 6.6 on 08/23 and he had another transfusion 1 unit pRBC. H&H stable today. Monitor H&H closely and transfuse as needed with hemoglobin threshold <7 Continue IV Venofer (6) Atrial tachycardia: Code(s): I47.1 - Supraventricular tachycardia Status: Acute Assessment and Plan: Patient noted to have atrial flutter with heart rate up to 130s. This was likely exacerbated by anemia and surgical procedure. Electrolytes are stable. He is now in sinus rhythm and rate is controlled. Echo unremarkable. Review of
--- NOTE | 2020-08-25 17:56 | PM.PNNEP ---
Progress Note: A&P Assessment and Plan (1) ARF (acute renal failure): Code(s): N17.9 - Acute kidney failure, unspecified Status: Acute Assessment and Plan: etiology not entirely clear evaluation to date: - renal ultrasound shows without obstruction now - urine electrolytes are non pre-renal - significant proteinuria but in the setting of an bladder infection makes interpretation difficult follow-up on pending serologies since eating/drinking okay - agree with d/c IVFs follow repeat labs and UOP (2) Chronic kidney disease, stage IV (severe): Code(s): N18.4 - Chronic kidney disease, stage 4 (severe) Status: Chronic Assessment and Plan: creatinine 2.3mg/dl in January of 2020 likely secondary to hypertension and diabetes however, may have a new baseline given acute insult (3) Kidney stone: Code(s): N20.0 - Calculus of kidney Status: Acute Assessment and Plan: as noted by admission imaging -- bilateral nephrolithiasis with moderate hydronephrosis on both sides KUB showed bilateral nephrolithiasis as well continue good oral hydration and avoidance of high salt content foods on allopurinol for high uric acid Urology following (4) BPH (benign prostatic hyperplasia): Code(s): N40.0 - Benign prostatic hyperplasia without lower urinary tract symptoms Status: Chronic Assessment and Plan: Urology following for this as well (5) Diabetes: Code(s): E11.9 - Type 2 diabetes mellitus without complications Status: Chronic Assessment and Plan: follow Accu-Cheks on sliding-scale insulin Will continue to follow. Subjective Date/time seen: 08/25/20 17:56 Chart reviewed since admission -- eating and drinking reasonably well; creatinine seems stable if not slowly improving; anxious for discharge at this time; no new issues/events overnight or earlier this AM; only major complaint is that of weakness. Exam Narrative: Exam Narrative: General: WD/WN male in NAD Heart: normal S1 and S2; no rub Lungs: clear to auscultation Abdomen: soft, nontender, nondistended, positive bowel sounds Extremities: no cyanosis or clubbing; trace edema Skin: chronic venous stasis changes Objective Data Vital Signs Vital Signs: Vital Signs Temp Pulse Resp BP Pulse Ox 08/25/20 16:00 57 L 08/25/20 14:00 36.4 C L 56 L 16 137/55 L 100 08/25/20 12:00 52 L 08/25/20 10:00 36.3 C L 61 18 127/57 L 98 08/25/20 08:56 60 18 99 08/25/20 08:26 60 08/25/20 08:00 75 08/25/20 06:00 36.3 C L 59 L 18 119/52 L 99 08/25/20 04:00 57 L 08/25/20 02:00 36.9 C 82 18 138/68 98 08/25/20 00:00 63 08/24/20 21:43 36.8 C 66 18 136/60 98 08/24/20 20:59 56 L 08/24/20 20:00 61 Intake/Output Intake/Output: Intake & Output 08/22/20 08/23/20 08/24/20 08/25/20 23:59 23:59 23:59 23:59 Intake Total 5520 4568 3330 1490 Output Total 2250 2200 3800 1900 Balance 3270 2368 -470 -410 Meds/Results Medications: Active Medications Generic Name Dose Route Start Last Admin Trade Name Freq PRN Reason Stop Dose Admin Allopurinol 100 mg 08/22/20 08:00 08/25/20 08:25 Allopurinol 100 Mg Tablet PO 100 mg DAILY@0800 ROHAN Administration Cyanocobalamin 1,000 mcg 08/19/20 15:10 08/25/20 08:25 Cyanocobalamin 1,000 Mcg Tablet PO 1,000 mcg DAILY ROHAN Administration Dextrose 12.5 gm 08/19/20 15:51 Dextrose 50% 25 Gm/50 Ml Syringe IV PUSH PRN PRN Hypoglycemia Protocol Epoetin Rafy-epbx 10,000 units 08/21/20 09:00 08/23/20 07:59 Epoetin Rafy-Epbx 10,000 Units/Ml Vial SUB-Q 10,000 units TuThSa@0900 ROHAN Administration Glucagon 1 mg 08/19/20 15:51 Glucagon For Inj 1 Mg Vial IM PRN PRN Hypoglycemia Protocol Glucose 15 gm 08/19/20 15:51 Glucose Oral Gel 15 Gm Of Glucse In 37.
[2020-08-25 18:21] LABS: Glucose Point of Care 125 (65-105)
[2020-08-25] MEDS: SODIUM CHLORIDE 0.9% IV 1,000 ML 50 ML IV CONT (19:21)
[2020-08-25] MEDS: TAMSULOSIN HCL 0.4 MG CAPSULE PO (21:05)
--- NOTE | 2020-08-25 21:07 | PCDIET ---
herminia FRY informed of low heart rate of 56 and toprol held due to parameters
[2020-08-25 21:15] LABS: Glucose Point of Care 123 (65-105)
[2020-08-26] VITALS (8 sets, daily range): BP systolic 124–147; BP diastolic 57–61; PULSE 46–65; RESP 18–20; TEMP 36.1–36.6; O2SAT 99–100
[2020-08-26 05:48] LABS: Hematocrit 26.3 % (42.0-52.0); Hemoglobin 7.9 g/dL (14.0-18.0); Mean Corpuscular Hemoglobin 25.6 pg (26-34); Mean Corpuscular Volume 85.4 fl (80-100); Mean Platelet Volume 10.3 fl (7.4-10.4); Platelet Count Result 223 k/mm3 (150-375); Red Blood Count 3.08 M/mm3 (4.6-6.20); Red Cell Distribution Width 19.2 % (11.5-14.5); White Blood Count 11.2 K/mm3 (4.5-10.0)
[2020-08-26 06:05] LABS: Anion Gap 6 mmol/L (8-16); Blood Urea Nitrogen 27 mg/dL (9-20); Calcium 8.3 mg/dL (8.4-10.2); Carbon Dioxide 26 mmol/L (22-30); Chloride 111 mmol/L (98-107); Estimated CRCL calculation 29 ml/min; Estimated Glomerular Filt Rate 22; Glucose 125 mg/dL (75-110); Potassium 3.6 mmol/L (3.4-5.0); Sodium 143 mmol/L (137-145)
--- NOTE | 2020-08-26 08:03 | PM.PNCARD ---
Progress Note: A&P Assessment and Plan (1) Anemia: Code(s): D64.9 - Anemia, unspecified Status: Acute Assessment and Plan: S/P 2 PRBC transfusions and iron. (2) HLD (hyperlipidemia): Code(s): E78.5 - Hyperlipidemia, unspecified Status: Chronic Assessment and Plan: Continue Lovastatin. (3) Atrial tachycardia, paroxysmal: Code(s): I47.1 - Supraventricular tachycardia Status: Acute Assessment and Plan: PAT/flutter. This is likely due to worsened anemia and s/p urologic procedure. Will not start Diltiazem bolus or drip given BP is 119 systolic and HR 128 bpm. On Metoprolol Tartate 25 mg PO BID with parameters. No anticoagulation given hematuria and anemia. Had shinto of sinus rhythm, but had 15 beat run on 08/21/19 at 04:57. Atrial triplet only on 08/22/19. Has sinus bradycardia down to 44 bpm only while sleeping on monitor. This is OK when occurs while sleeping. Change Metoprolol Tartate 12.5 mg BID to Metoprolol Succinate 12.5 mg daily to allow for higher heart rate. May d/c home from cardiology standpoint and f/uw with me in 2 weeks. (4) ARF (acute renal failure): Code(s): N17.9 - Acute kidney failure, unspecified Status: Acute Assessment and Plan: Acute on chronic CKD. Subjective Date/time seen: 08/26/20 08:03 Denies chest pain, sob, or dizziness. Exam Const: General: cooperative, healthy appearing and comfortable Resp: Auscultation: clear to auscultation bilaterally, no crackles, no rales, no rhonchi and no wheezes Cardio: Jugular venous distension: no JVD Rate: regular rate Rhythm: regular rhythm Heart sounds: no murmurs Peripheral pulses: dorsalis pedis present GI: GI Palp: No abdominal tenderness and Yes Soft to palpation Urinary Catheter: Urinary Catheter: urine red Neuro: General: oriented to person and oriented to place Extrem: Right lower extremity: no edema Left lower extremity: no edema Objective Data Vital Signs Vital Signs: Vital Signs - 24 hr 08/25/20 08:26 08/25/20 08:56 08/25/20 10:00 Temperature 97.3 F L Pulse Rate 60 60 61 Respiratory Rate 18 18 Blood Pressure 127/57 L Pulse Oximetry 99 98 08/25/20 12:00 08/25/20 14:00 08/25/20 16:00 Temperature 97.5 F L Pulse Rate 52 L 56 L 57 L Respiratory Rate 16 Blood Pressure 137/55 L Pulse Oximetry 100 08/25/20 18:00 08/25/20 20:00 08/25/20 21:06 Temperature 97.4 F L Pulse Rate 65 56 L 56 L Respiratory Rate 18 Blood Pressure 146/55 H Pulse Oximetry 100 08/25/20 22:00 08/26/20 00:00 08/26/20 02:00 Temperature 97.3 F L 97 F L Pulse Rate 52 L 46 L 63 Respiratory Rate 20 20 Blood Pressure 137/59 L 124/57 L Pulse Oximetry 100 99 08/26/20 04:00 08/26/20 05:17 Temperature 97 F L Pulse Rate 56 L 63 Respiratory Rate 20 Blood Pressure 138/59 L Pulse Oximetry 100 Intake/Output Intake/Output: Intake & Output 08/23/20 08/24/20 08/25/20 08/26/20 23:59 23:59 23:59 23:59 Intake Total 4568 3330 4530 190 Output Total 2200 3800 3500 2000 Balance 2368 -470 1030 -1810 Meds/Results Medications: Active Medications Generic Name Dose Route Start Last Admin Trade Name Freq PRN Reason Stop Dose Admin Allopurinol 100 mg 08/22/20 08:00 08/25/20 08:25 Allopurinol 100 Mg Tablet PO 100 mg DAILY@0800 ROHAN Administration Cyanocobalamin 1,000 mcg 08/19/20 15:10 08/25/20 08:25 Cyanocobalamin 1,000 Mcg Tablet PO 1,000 mcg DAILY ROHAN Administration Dextrose 12.5 gm 08/19/20 15:51 Dextrose 50% 25 Gm/50 Ml Syringe IV PUSH PRN PRN Hypoglycemia Protocol Epoetin Rafy-epbx 10,000 units 08/21/20 09:00 08/23/20 07:59 Epoetin Rafy-Epbx 10,000 Units/Ml Vial SUB-Q 10,000 units TuThSa@0900 ROHAN Administration Glucagon 1 mg 08/19/20 15:51 Glucagon For Inj 1 Mg Vial IM PRN PRN Hypoglycemia Protocol Glucose 15 gm 08/19/20 15:51 Glucose Oral
[2020-08-26] MEDS: CYANOCOBALAMIN 1,000 MCG TABLET 1000 MCG PO (09:26)
[2020-08-26] MEDS: SODIUM BICARBONATE TAB 650 MG TABLET 1300 MG PO (09:27)
[2020-08-26] MEDS: EPOETIN ALFA-EPBX 10,000 UNITS/ML VIAL 10000 UNITS SUB-Q (09:27)
[2020-08-26] MEDS: LOVASTATIN 20 MG TABLET 40 MG PO (09:27)
[2020-08-26] MEDS: allopurinoL 100 MG TABLET PO (09:27)
[2020-08-26] MEDS: METOPROLOL SUCCINATE EXT REL 12.5 MG TABCR PO (10:43)
--- NOTE | 2020-08-26 11:20 | PCOTNOTE ---
Attempted to see patient, patient getting special line placed. Will attempt to see patient later this date for OT or will continue plan of care tomorrow, 08/27/2020.
--- NOTE | 2020-08-26 11:41 | PM.PNNEP ---
Progress Note: A&P Assessment and Plan (1) ARF (acute renal failure): Code(s): N17.9 - Acute kidney failure, unspecified Status: Acute Assessment and Plan: etiology not entirely clear evaluation to date: - renal ultrasound shows without obstruction now - urine electrolytes are non pre-renal - significant proteinuria but in the setting of an bladder infection makes interpretation difficult follow-up on pending serologies follow repeat labs and UOP (2) Chronic kidney disease, stage IV (severe): Code(s): N18.4 - Chronic kidney disease, stage 4 (severe) Status: Chronic Assessment and Plan: creatinine 2.3mg/dl in January of 2020 likely secondary to hypertension and diabetes however, may have a new baseline given his recent acute insult (3) Kidney stone: Code(s): N20.0 - Calculus of kidney Status: Acute Assessment and Plan: as noted by admission imaging -- bilateral nephrolithiasis with moderate hydronephrosis on both sides KUB showed bilateral nephrolithiasis as well continue good oral hydration and avoidance of high salt content foods on allopurinol for high uric acid Urology following (4) BPH (benign prostatic hyperplasia): Code(s): N40.0 - Benign prostatic hyperplasia without lower urinary tract symptoms Status: Chronic Assessment and Plan: Urology following for this as well (5) Diabetes: Code(s): E11.9 - Type 2 diabetes mellitus without complications Status: Chronic Assessment and Plan: follow Accu-Cheks on sliding-scale insulin Will continue to follow. No opposed to discharge -- he can follow-up with PCP or Dr. Estrada for ongoing CKD management. Subjective Date/time seen: 08/26/20 11:41 No acute issues or problems to report at this time; he feels reasonably well and has been eating/drinking reasonably well although he dislikes the hospital food; no apparent distress noted at this time; no other issues/events overnight or earlier this AM. Exam Narrative: Exam Narrative: General: WD/WN male in NAD Heart: normal S1 and S2; no rub Lungs: clear to auscultation Abdomen: soft, nontender, nondistended, positive bowel sounds Extremities: no cyanosis or clubbing; trace edema Skin: chronic venous stasis changes Objective Data Vital Signs Vital Signs: Vital Signs Temp Pulse Resp BP Pulse Ox 08/26/20 10:43 65 08/26/20 05:17 36.1 C L 63 20 138/59 L 100 08/26/20 04:00 56 L 08/26/20 02:00 36.1 C L 63 20 124/57 L 99 08/26/20 00:00 46 L 08/25/20 22:00 36.3 C L 52 L 20 137/59 L 100 08/25/20 21:06 56 L 08/25/20 20:00 56 L 08/25/20 18:00 36.3 C L 65 18 146/55 H 100 08/25/20 16:00 57 L 08/25/20 14:00 36.4 C L 56 L 16 137/55 L 100 08/25/20 12:00 52 L Intake/Output Intake/Output: Intake & Output 08/23/20 08/24/20 08/25/20 08/26/20 23:59 23:59 23:59 23:59 Intake Total 4568 3330 4530 420 Output Total 2200 3800 3500 2000 Balance 2368 -470 1030 -1580 Meds/Results Medications: Active Medications Generic Name Dose Route Start Last Admin Trade Name Freq PRN Reason Stop Dose Admin Allopurinol 100 mg 08/22/20 08:00 08/26/20 09:27 Allopurinol 100 Mg Tablet PO 100 mg DAILY@0800 ROHAN Administration Cyanocobalamin 1,000 mcg 08/19/20 15:10 08/26/20 09:26 Cyanocobalamin 1,000 Mcg Tablet PO 1,000 mcg DAILY ROHAN Administration Dextrose 12.5 gm 08/19/20 15:51 Dextrose 50% 25 Gm/50 Ml Syringe IV PUSH PRN PRN Hypoglycemia Protocol Epoetin Rafy-epbx 10,000 units 08/21/20 09:00 08/26/20 09:27 Epoetin Rafy-Epbx 10,000 Units/Ml Vial SUB-Q 10,000 units TuThSa@0900 ROHAN Administration Glucagon 1 mg 08/19/20 15:51 Glucagon For Inj 1 Mg Vial IM PRN PRN Hypoglycemia Protocol Glucose 15 gm 08/19/20 15:51 Glucose Oral G
--- NOTE | 2020-08-26 11:41 | PCNWS ---
Weekly nutritional screen. Patient is tolerating current diet with adequate intake. No weight loss reported. No nutritional needs at this time.
--- NOTE | 2020-08-26 13:07 | PCOTNOTE ---
Attempted to see patient for second time this date, patient declined all therapist's suggestions for interventions and became increasingly agitated when discussing participating in bathing as patient has refused bathing the last several days. Patient verbalized I don't take orders and stated he wouldn't continue arguing with therapist. OT session not able to be completed this date. Will continue plan of care tomorrow 08/27/2020.
[2020-08-26 13:34] LABS: Kappa\\Lambda Light Chains 1.41 (0.26-1.65); Lambda Light Chain 83.7 mg/L (5.7-26.3)
--- NOTE | 2020-08-26 14:13 | PM.DS ---
DS: Admitting Diagnosis Admitting Diagnosis Admitting Diagnosis: JAVAN on CKD, gross hematuria, bilateral nephrolithiasis with hydroureter, anemia, atrial flutter DS: Discharge Diagnosis Discharge Diagnosis (1) Acute on chronic kidney failure: Code(s): N17.9 - Acute kidney failure, unspecified; N18.9 - Chronic kidney disease, unspecified Status: Acute Assessment and Plan: He has a history of CKD and baseline creatinine appears to be about 2.3. Creatinine was 5.0 at presentation. Chronic kidney disease is likely secondary to hypertension and diabetes mellitus. Acute injury was likely multifactorial and secondary to obstructive uropathy from stones, acute UTI, and pre renal secondary to dehydration. Renal ultrasound unremarkable and no hydronephrosis noted. He was seen in conjugation by nephrology. IV fluids were given initially and then discontinued as he was felt adequately hydrated and tolerating PO intake well. Cr continued to improve and was 2.8 on the day of discharge. He was felt stable for discharge from a nephrology standpoint and was given lab orders for repeat renal function panel in 1 week. He will need to follow-up with his PCP and urology outpatient. (2) Kidney stone: Code(s): N20.0 - Calculus of kidney Status: Acute Assessment and Plan: Patient presented with gross hematuria. CT a/p performed 08/18 showed large bilateral nephrolithiasis with mild to moderate hydroureteronephrosis. He underwent bilateral ureteral stent placement on 08/19/[address] Blankenship. He tolerated the procedure well. Repeat renal ultrasound showed no residual hydronephrosis.He was advised to continue benito catheter and plan for benito catheter removal outpatient in 7 days and further definitive stone treatment outpatient per urology. (3) UTI (urinary tract infection): Code(s): N39.0 - Urinary tract infection, site not specified Status: Acute Assessment and Plan: Urinalysis grossly abnormal. Urine culture grew Pseudomonas. He remained afebrile and had mild leukocytosis. Preliminary blood cultures demonstrated NGTD. He was initially treated with IV ceftriaxone which was changed to IV cefepime on 08/22/20 after sensitivities were available. There were no options for oral antibiotics so he needed to continue IV cefepime for 7 days total. Outpatient IV infusions were set up for 2 additional days at the chest pain center at [place] by Care Coordination to complete his full course of treatment. (4) Altered mental status: Code(s): R41.82 - Altered mental status, unspecified Status: Resolved Assessment and Plan: Resolved. Patient exhibited confusion in conversation on 08/20 and was A&Ox2, which is not consistent with his baseline. This is most likely secondary to acute UTI. His mental status improved significantly with treatment of his UTI and he returned to baseline. Head CT showed no acute findings. (5) Anemia: Code(s): D64.9 - Anemia, unspecified Status: Acute Assessment and Plan: Patient noted to be anemic prior to procedure. Hemoglobin at presentation was 6.8. He underwent transfusion of 2 units pRBC on 08/19/2020. This was felt to be acute on chronic with underlying anemia of chronic disease from kidney failure with acute component from hematuria. IFOB was negative. H&H improved following transfusion. Iron panel shows mixed picture. B12 and folate were within limits. Hgb declined again to 6.6 on 08/23 and he had another transfusion 1 unit pRBC. H&H were stable with Hb 7.9 the day of discharge. He will need repeat CBC in 1 week for monitoring. (6) Atrial tachycardia: Code(s): I47.1 - Supraventricular tachycardia Status: Acute Assessment and Plan: Patient noted to have atrial flutter with heart rate up to 130s. This was likely exacerbated by anemia and surgical procedure. Electrolytes were stable. He was seen by Dr. Gutierrez with
[2020-08-26 17:29] LABS: Complement Total CH50 >60 U/mL (31-60)
[2020-08-28 15:09] LABS: Complement Total CH50 >60 U/mL (31-60)
== END 2020-08-26 16:04 | disposition home or self-care (01) | DRG 660 ==
LOC: ANH2MED 13:22 → ANHIMU 08-20 08:12 → ANH2MED 08-25 16:14 → ANHIMU 08-29 12:08
PROVIDERS: Anesthesiology; Internal Medicine Nephrology; Nurse Practitioner; Nurse Practitioner Adult Health; Physician Assistant; Urology; Admitting Provider Internal Medicine; PCP Internal Medicine; Visit Provider Physician Assistant
PROC: 0TCB8ZZ Extirpation of Matter from Bladder, Via Natural or Artificial Opening Endoscopic (ICD-10-PCS; CPT 52001; principal; 2020-08-19 10:00)
DX: N17.9 Acute kidney failure, unspecified (principal); I47.1 Supraventricular tachycardia; D62 Acute posthemorrhagic anemia; N13.6 Pyonephrosis; N20.0 Calculus of kidney; I12.9 Hypertensive chronic kidney disease with stage 1 through stage 4 chronic kidney disease, or unspecified chronic kidney disease; E11.22 Type 2 diabetes mellitus with diabetic chronic kidney disease; N18.4 Chronic kidney disease, stage 4 (severe); B96.5 Pseudomonas (aeruginosa) (mallei) (pseudomallei) as the cause of diseases classified elsewhere; E86.0 Dehydration; N40.0 Benign prostatic hyperplasia without lower urinary tract symptoms; D63.1 Anemia in chronic kidney disease; E78.5 Hyperlipidemia, unspecified; R41.82 Altered mental status, unspecified; K21.9 Gastro-esophageal reflux disease without esophagitis; M19.90 Unspecified osteoarthritis, unspecified site; I49.9 Cardiac arrhythmia, unspecified; I48.91 Unspecified atrial fibrillation; E66.9 Obesity, unspecified; Z68.38 Body mass index [BMI] 38.0-38.9, adult; Z87.891 Personal history of nicotine dependence
CPT/HCPCS: 36415; 36430; 70450; 74018; 74176; 74420; 76770; 80048; 80053; 80069; 81001; 82274; 82550; 82570; 82607; 82728; 82746; 83036; 83540; 83550; 83735; 83883; 83970; 84100; 84156; 84300; 84443; 84550; 85014; 85018; 85025; 85027; 85610; 85652; 85730; 85999; 86038; 86160; 86162; 86334; 86335; 86850; 86900; 86901; 86923; 87040; 87077; 87086; 87088; 87186; 93005; 97110; 97116; 97161; 97165; 97530; 97535; A9270; C1758; C1769; C2617; C8929; C9803; J0131; J0690; J0692; J0696; J1160; J1756; J2704; J7030; J7050; J7120; P9016; Q5106; Q9957; Q9966; U0003

== ENCOUNTER 2020-08-28 09:41 | Outpatient (RCR) | payer OTHER, SELFPAY ==
[2020-08-27 10:40] VITALS: BP 152/70; PULSE 70; RESP 15; TEMP 37.2; O2SAT 100
[2020-08-27] MEDS: CEFEPIME 2 GM in DEXTROSE 5% IN WATER 50 ML IVPB (10:44)
[2020-08-28] MEDS: CEFEPIME 2 GM in DEXTROSE 5% IN WATER 50 ML IVPB (10:24)
--- NOTE | 2020-08-28 11:12 | PC.NURSE ---
Patient arrives this morning for second day of two day IV antibiotic therapy. Patient complains of right are swelling, pain, tenderness, and redness at site. Upon assessment by this RN, arm noted to have +4 pitting edema, tenderness, and is very warm to touch. Patient states his pain is from a bad IV from when I was here on Tuesday. Patient refusing vital signs at this time. Amanda Poon notified of patient's condition in his right arm and instructs that patient be taken to the ED for further evaluation. Patient agreeable to plan of care. Patient's Fabiola notified and is also agreeable to plan of care. VALENTINA Austin, ED Charge nurse, notified of patient's condition and that he will be coming to the ED for admission, following his antibiotic infusion. Patient escorted to ED via wheelchair.
== END 2020-11-25 23:59 | disposition home or self-care (01) ==
LOC: ANHCPCTRAN 09:41
PROVIDERS: PCP Internal Medicine; Visit Provider Physician Assistant
DX: N39.0 Urinary tract infection, site not specified (principal); B96.5 Pseudomonas (aeruginosa) (mallei) (pseudomallei) as the cause of diseases classified elsewhere
CPT/HCPCS: 96365; J0692

== ENCOUNTER 2020-08-28 11:25 | Emergency (ER) | payer OTHER, SELFPAY ==
--- NOTE | ~2020-08-28 | US_ITS ---
EXAMINATION: US venous doppler UE RT EXAM DATE: 08/28/2020 13:14 INDICATION: Pain and swelling rt arm redness, tenderness. recent iv. TECHNIQUE: Multiple grayscale, color flow, Doppler sonographic images of the right upper extremity ve ins obtained by technologist. Compression was performed where able. There is no prior study for norma diaz. FINDINGS: Right upper extremity: Jugular vein: ------------> Normal. Subclavian vein: --------> Normal. Axillary vein:------------> Normal. Brachial vein:-----------> Normal. Basilic vein: ------------> Normal. Cephalic vein: ----------> Thrombosed. Radial vein: ------------> Normal. Ulnar vein: > Normal. IMPRESSION: Right cephalic superficial venous thrombosis. No DVT. Reviewed, dictated and finalized at location B. 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
[2020-08-28 11:50] VITALS: BP 138/68; PULSE 82; RESP 18; TEMP 36.3; O2SAT 98
[2020-08-28 13:44] LABS: Basophils Percent Auto 0.4 % (0.2-1.2); Eosinophils Absolute Auto 0.3 K/mm3 (0-0.3); Eosinophils Percent Auto 2.6 % (0-4.4); Hematocrit 28.9 % (42.0-52.0); Hemoglobin 8.8 g/dL (14.0-18.0); Immature Granulocyte Absolute 0.05 K/mm3 (0.00-0.031); Immature Granulocyte Percent A 0.4 % (0-0.5); Lymphocytes Absolute Auto 2.04 K/mm3 (0.9-3.2); Lymphocytes Percent Auto 18.1 % (18.3-44.2); Mean Corpuscular HGB Conc 30.4 g/dl (32-36); Mean Corpuscular Hemoglobin 25.8 pg (26-34); Mean Corpuscular Volume 84.8 fl (80-100); Mean Platelet Volume 9.7 fl (7.4-10.4); Monocytes Absolute Auto 0.8 K/mm3 (0.1-0.6); Monocytes Percent Auto 6.8 % (2.6-8.5); Neutrophils Absolute Auto 8.1 K/mm3 (1.3-6.7); Neutrophils Percent Auto 71.7 % (45.5-73.1); Platelet Count Result 259 k/mm3 (150-375); Red Blood Count 3.41 M/mm3 (4.6-6.20); Red Cell Distribution Width 19.8 % (11.5-14.5); White Blood Count 11.3 K/mm3 (4.5-10.0)
--- NOTE | 2020-08-28 13:45 | ED.GENADULT ---
HPI - General Adult General Chief complaint: Extremity Injury, Upper Stated complaint: IV infiltrated Time Seen by Provider: 08/28/20 12:01 Source: patient, RN notes reviewed and old records reviewed Mode of arrival: ambulatory Limitations: no limitations History of Present Illness HPI narrative: A 79-year-old male presents to the emergency department with complaints of right upper extremity pain, swelling and redness and warmth to the touch. Patient states he was just discharged from the hospital had an IV there that infiltrated. He states he is not sure what was going on or what he had to come back. Speaking with the nurse who was taking care of the patient in the [facility] she notes that he came in to get an infusion of cefepime. She notes that the patient was coming in for cefepime infusions for his pneumonia, had been complaining of pain and increased swelling in his arm and that is why he was sent down here to get this further evaluated. Related Data Home Medications Medication Instructions Recorded Confirmed cyanocobalamin (vitamin B-12) 1,000 mcg PO DAILY 01/14/20 08/19/20 furosemide [Lasix] 40 mg PO PRN PRN 01/14/20 08/19/20 lovastatin 40 mg PO DAILY 01/14/20 08/19/20 tamsulosin 0.4 mg PO HS 01/14/20 08/19/20 tramadol 50 mg PO BID 08/06/20 08/19/20 Allergies Allergy/AdvReac Type Severity Reaction Status Date / Time No Known Allergies Allergy Verified 08/19/20 13:15 Review of Systems Review of Systems: Narrative: CONSTITUTIONAL: Denies fever, chills, or sweats. EYES: Denies visual changes, redness, or discharge. ENT: Denies rhinorrhea, congestion, sore throat, or otalgia. CARDIOVASCULAR: Denies chest pain, palpitations, or edema. RESPIRATORY: Denies cough or dyspnea. GASTROINTESTINAL: Denies abdominal pain, nausea, vomiting, or diarrhea. GENITOURINARY: Denies dysuria or hematuria. SKIN: Denies rash or itching. MUSCULOSKELETAL: Denies back pain, joint pain, or myalgia. NEUROLOGIC: Denies headache, numbness, dizziness, or weakness. PSYCHIATRIC: Denies anxiety or depression. 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 The patient stopped smoking in 1983 he said that he smoked up to 4 packs of cigarettes a day. 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 His no biological children but has 3 step children. No alcohol marijuana or illicit drug use. Smoking packs per day: 4 Smoking cigarettes per day: 80.0 Years smoked: 32 Smoking pack-years: 128.00 Smoking status: Former smoker Tobacco type: cigarettes Smoking end date: 08/15/83 Alcohol intake: current Drinks per week: 2 Substance use: never Substance use type: does not use Gender identity (if verbalized by the patient): Male Spiritual care concerns: No Exam Narrative: Exam Narrative: GENERAL: Well-appearing, well-nourished, and in no acute distress. HEAD: Normocephalic, atraumatic. EYES: PERRLA and EOMI. ENT: Nares clear, no rhinorrhea or epistaxis. Mucous membranes moist. Oropharynx without tonsillar hypertrophy exudate or other lesions. Bilateral TMs pearly syed nonbulging NECK: Supple.
[2020-08-28 13:56] LABS: Alanine Aminotransferase 20 U/L (4-50); Albumin Level 3.8 g/dL (3.5-5.1); Alkaline Phosphatase 101 U/L (38-126); Anion Gap 4 mmol/L (8-16); Aspartate Amino Transferase 25 U/L (17-59); Bilirubin,Total 0.5 mg/dL (0.2-1.3); Blood Urea Nitrogen 25 mg/dL (9-20); Calcium 8.9 mg/dL (8.4-10.2); Carbon Dioxide 29 mmol/L (22-30); Chloride 105 mmol/L (98-107); Estimated CRCL calculation 30 ml/min; Estimated Glomerular Filt Rate 23; Glucose 126 mg/dL (75-110); Potassium 4.1 mmol/L (3.4-5.0); Sodium 138 mmol/L (137-145)
--- NOTE | 2020-08-28 14:29 | PC.NURSE ---
This RN went to update pt and obtain vitals. Pulled cart into room and discussed POC with pt. When BP was taken out w/ attempt to place on arm for reading, pt states You aren't going to put that on my arm. This RN asked pt Where would you like me to put it? in attempt to accommodate pts wishes/comfort. Pt replies Around your neck. Those things hurt and I already had my BP taken. Pt declined vitals at this time.
== END 2020-08-28 15:07 | disposition home or self-care (01) ==
PROVIDERS: Emergency Provider Emergency Medicine; PCP Internal Medicine
DX: I80.8 Phlebitis and thrombophlebitis of other sites (principal); N40.0 Benign prostatic hyperplasia without lower urinary tract symptoms; K21.9 Gastro-esophageal reflux disease without esophagitis; E78.5 Hyperlipidemia, unspecified; E11.22 Type 2 diabetes mellitus with diabetic chronic kidney disease; N18.9 Chronic kidney disease, unspecified; M19.90 Unspecified osteoarthritis, unspecified site; Z87.442 Personal history of urinary calculi; Z87.440 Personal history of urinary (tract) infections; Z87.891 Personal history of nicotine dependence
CPT/HCPCS: 36415; 80053; 85025; 93971; 96365; 99284; J0692

== ENCOUNTER 2020-10-08 11:24 | Outpatient (CLI) | payer OTHER, SELFPAY ==
--- NOTE | 2020-10-08 11:26 | ECG_ITS ---
Measurements Intervals [place] Rate: 66 P: 64 IA: 243 QRS: -37 QRSD: 103 T: 16 QT: 385 QTc: 404 Interpretive Statements SINUS RHYTHM WITH FIRST DEGREE AV BLOCK LEFT AXIS DEVIATION DELAYED PRECORDIAL R/S TRANSITION ABNORMAL ECG Electronically Signed On 10-08-2020 12:10:18 [employer] by Albert Gutierrez D.O.
[2020-10-08 11:51] LABS: Hemoglobin 10.2 g/dL (14.0-18.0)
[2020-10-08 12:06] LABS: INR 1.1; Prothrombin Time 14.3 Seconds (11.1-14.7)
[2020-10-08 12:07] LABS: Partial Thromboplastin Time 26.7 SECONDS (22.3-36.8)
[2020-10-08 12:15] LABS: Anion Gap 7 mmol/L (8-16); Blood Urea Nitrogen 38 mg/dL (9-20); Calcium 8.9 mg/dL (8.4-10.2); Carbon Dioxide 28 mmol/L (22-30); Chloride 104 mmol/L (98-107); Estimated Glomerular Filt Rate 17; Glucose 151 mg/dL (75-110); Potassium 3.9 mmol/L (3.4-5.0); Sodium 139 mmol/L (137-145)
== END 2020-10-08 11:25 | disposition home or self-care (01) ==
PROVIDERS: Anesthesiology; PCP Internal Medicine; Visit Provider Urology
DX: N20.0 Calculus of kidney (principal); Z79.899 Other long term (current) drug therapy; D64.9 Anemia, unspecified; I49.9 Cardiac arrhythmia, unspecified
CPT/HCPCS: 36415; 80048; 85014; 85018; 85610; 85730; 87086; 87088; 93005

== ENCOUNTER → 2020-10-14 00:19 | Outpatient (CLI) | payer OTHER, SELFPAY ==
[2020-10-14 19:08] LABS: SARS-CoV-2 RNA PCR Negative
== END ==
PROVIDERS: PCP Internal Medicine; Visit Provider Urology
DX: Z01.812 Encounter for preprocedural laboratory examination (principal); Z20.822 Contact with and (suspected) exposure to COVID-19
CPT/HCPCS: C9803; U0003; U0005

== ENCOUNTER 2020-10-17 01:05 | Day surgery (SDC) | payer OTHER, SELFPAY ==
[2020-10-07 09:05] VITALS: BMI 39.2
[2020-10-17] VITALS (8 sets, daily range): BP systolic 105–153; BP diastolic 63–88; PULSE 53–71; RESP 10–20; TEMP 36.1–37.2; O2SAT 100
--- NOTE | ~2020-10-17 | XR_ITS ---
EXAMINATION: XR abdomen/kub 1V EXAM DATE: 10/17/2020 11:05 INDICATION: Lithotripsy. TECHNIQUE: Frontal projection of the upper abdomen, frontal projection lower abdomen/pelvis for inter pretation. Comparison is made to prior examination from 08/18/2020. FINDINGS: There are bilateral double-J ureteral stents overlying expected positions. There are sizab le bilateral densities kidneys. Nonobstructive bowel gas pattern. Advanced lower lumbar spondylosis. IMPRESSION: 1. Large bilateral nephrolithiasis. 2. Stents in position. Reviewed, dictated and finalized at location A. IC PHYSICIAN
--- NOTE | 2020-10-17 11:20 | WPDHPUPDATE1 ---
History and Physical Update Update Date/Time: 10/17/20 11:20 History and Physical has been reviewed, including an updated exam of the patient. There are NO changes in the patient's condition. Risks, benefits, and alternatives have been discussed and questions answered. Patient agrees to proceed with procedure. Proceed with lithotripsy of right renal calculus
[2020-10-17 11:51] LABS: Glucose Point of Care 158 (65-105)
[2020-10-17] MEDS: LACTATED RINGERS 1,000 ML 30 ML IV CONT ×2 (11:51→14:00)
--- NOTE | 2020-10-17 12:14 | WPDANESEPPF ---
Anes - Initial Pre Proc Eval Procedure: Operation Date: 10/17/20 13:00 Proposed Procedures p Right Extracorporeal Shock Wave Lithotripsy - Paco Blankenship MD Date/Time: 10/17/20 12:14 Surgeon: Paco Blankenship MD Pre Op Diagnosis: Right Renal Stone Patient Data Age: 80 Gender: M Height: 1.83 m Weight: 135.5 kg Last Vital Signs Temp 37.2 C 10/17/20 11:55 Pulse 71 10/17/20 11:55 BP 145/63 H 10/17/20 11:55 Pulse Ox 100 10/17/20 11:55 Allergies Allergy/AdvReac Type Severity Reaction Status Date / Time No Known Allergies Allergy Verified 10/17/20 11:53 Home Medications Medication Instructions Recorded Confirmed Type cyanocobalamin (vitamin B-12) 1,000 mcg PO DAILY 01/14/20 10/17/20 History furosemide [Lasix] 40 mg PO QAM 01/14/20 10/17/20 History lovastatin 40 mg PO DAILY 01/14/20 10/17/20 History tamsulosin 0.4 mg PO HS 01/14/20 10/17/20 History docusate sodium 100 mg PO BID #10 cap 01/23/20 10/07/20 Rx tramadol 50 mg PO BID 08/06/20 10/17/20 History allopurinol 100 mg PO DAILY@0800 30 Days #30 08/26/20 10/17/20 Rx tablet sodium bicarbonate 650 mg PO BID #60 tablet 08/26/20 10/17/20 Rx ciprofloxacin HCl 500 mg PO BID 10/07/20 10/17/20 History metoprolol succinate 12.5 mg PO QAM 10/07/20 10/17/20 History Laboratory Tests 10/17/20 11:49 POC Capillary Glucose 158 mg/dl H mg/dl (65-105) Patient hx anesthesia problems: none Family hx anesthesia problems: none PMFSH Past Medical History Medical History Arthritis BPH (benign prostatic hyperplasia) CRF (chronic renal failure) Diabetes Esophageal ulcer Full dentures GERD (gastroesophageal reflux disease) HLD (hyperlipidemia) Kidney stone Seasonal allergies Shingles UTI (urinary tract infection) Wears glasses Surgical History Surgical History H/O colonoscopy H/O dilation of urethra History of arthroscopy of knee right History of laminectomy Status post cystoscopy Family History Family History Unknown Unknown family medical history Social History Social History Social History: 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 The patient stopped smoking in 1983 he said that he smoked up to 4 packs of cigarettes a day. 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 His no biological children but has 3 step children. No alcohol marijuana or illicit drug use. Smoking packs per day: 4 Smoking cigarettes per day: 80.0 Years smoked: 32 Smoking pack-years: 128.00 Smoking status: Former smoker Tobacco type: cigarettes Smoking end date: 08/15/83 Alcohol intake: current Drinks per week: 2 Alcohol use details: HEAVIER DRINKER IN PAST YEARS Substance use: never Substance use type: does not use Living arrangements: with family Additional living arrangements comments: Gender identity (if verbalized by the patient): Male Spiritual care concerns: No Anes - Eval Final PreProcedure Day of Procedure 10/17/20 12:14 Patient weight: obese Heart: regular rate and rhythm Lungs: clear to auscultation and normal air movement Airway: Mallampati scale class II Neurological: alert and oriented Last oral intake: >/= 8 hours ASA classification: III Emergent: no Anesthetic plan: proceed Anesthesia type and monitoring: general LMA Informed Consent: The patient's anesthetic plan and its attendant risks and benefits were discussed with the patient/family/POA. Questions were solicited and answers provided to the satisfaction of the patient/family/POA.
[2020-10-17] MEDS: ceFAZolin 2 GM/D5W 50 ML 2 GM/50 ML BAG IVPB (13:03)
--- NOTE | 2020-10-17 13:45 | PM.PROC ---
Procedure Note - Detailed Date of procedure: 10/17/20 Pre-op diagnosis: Right Renal Stone Post-op diagnosis: same Procedure performed: Lithotripsy of right renal calculus 1.5 cm Description of procedure: Patient was taken to the operative suite and correctly identified. Once anesthesia was obtained the stone was localized in both planes. Two thousand five hundred shocks were given to the stone. Patient tolerated procedure well without any complications is taken recovery stable condition. He will follow up in about 10 days with a KUB. Anesthesia: GLMA Surgeon: Paco Blankenship MD Drains: No Packing: No Pathology: none sent Complications: No immediate complications Condition: stable Disposition: PACU
== END 2020-10-17 15:55 | disposition home or self-care (01) ==
PROVIDERS: PCP Internal Medicine; Visit Provider Urology
PROC: (CPT 50590; principal; 2020-10-17 13:00)
DX: N20.0 Calculus of kidney (principal); E11.22 Type 2 diabetes mellitus with diabetic chronic kidney disease; N18.9 Chronic kidney disease, unspecified; E78.5 Hyperlipidemia, unspecified; N40.0 Benign prostatic hyperplasia without lower urinary tract symptoms; Z87.891 Personal history of nicotine dependence; E66.01 Morbid (severe) obesity due to excess calories; Z68.41 Body mass index [BMI] 40.0-44.9, adult
CPT/HCPCS: 50590; 74018; 82948; C9803; J0690; J1100; J2250; J2405; J2704; J3010; J7120; U0003; U0005

== ENCOUNTER 2020-11-05 13:24 | Outpatient (CLI) | payer OTHER, SELFPAY ==
--- NOTE | ~2020-11-05 | XR_ITS ---
XR abdomen/kub 1V DATE: 11/05/2020 13:52 INDICATION: Calcium kidney stone TECHNIQUE: AP projection, 2 views COMPARISON: 10/17/2020 KUB FINDINGS: Bilateral internal urinary stents are unchanged in position since 10/17/2020. Stable large calcified lower pole left renal calculus compared to 10/17/2020. Small mid right and lower pole right renal calcified calculi are suggested but a large calcified dens ity overlying the mid to upper right kidney on 10/17/2020 is no longer evident. No apparent calcified stones of the ureters or urinary bladder. No evidence of bowel obstruction. The psoas shadows are intact. No visceromegaly is detected. Degenerative changes of the thoracic and lumbar spine. IMPRESSION: Bilateral internal urinary stents in bilateral nephrolithiasis Reviewed, dictated and finalized at Location A. Reviewed, dictated and finalized at location B.
== END 2020-11-05 13:25 | disposition home or self-care (01) ==
LOC: ANHIMG 13:28
PROVIDERS: PCP Internal Medicine; Visit Provider Urology
DX: N20.0 Calculus of kidney (principal)
CPT/HCPCS: 74018